=== PATIENT | male | born 1945 | race Caucasian/White ===

== ENCOUNTER 2019-02-03 02:55 | Emergency (ER) | payer MEDICARE, MEDICAID, SELFPAY ==
[2019-02-03] VITALS (20 sets, daily range): BP systolic 132–168; BP diastolic 73–92; PULSE 67–130; RESP 11–23; TEMP 36.5; O2SAT 94–99
[2019-02-03] MEDS: Normal Saline 1,000 ML 1000 ML IV (03:18)
--- NOTE | 2019-02-03 03:18 | ED.GENADUL_ITS ---
Discharge Plan Disposition Patient Disposition: HOME Condition: Stable Discharge Details Chief Complaint: Abd Prob Clinical Impression: Atrial fibrillation with RVR Primary Care Provider: Lydia Nixon ED Provider: Tee Cleveland Home Meds and New Rx's Prescriptions: New diltiazem HCl 120 mg capsule,extended release 24hr 120 mg PO DAILY Qty: 10 RF: 0 Continued Shingrix (PF) 50 mcg/0.5 mL suspension for reconstitution 50 mcg IM .COMPLEX Qty: 1 RF: 1 aspirin [Aspir-81] 81 MG tablet,delayed release (DR/EC) 81 mg PO DAILY RF: 0 Discharge Instructions Instructions: Atrial Fibrillation (ED) Additional Instructions: start taking the diltiazem every morning tomorrow. When you follow up with your primary care provider this week discuss continuing this medication if you have worsening symptoms or new symptoms such as severe chest pain or difficulty breathing return to the emergency department Medical Decision Making 73 yo male with hx of afib on asa only, aaa, who comes in with chief complaint of nausea primarily when he wakes up around 2am for the past few days. Denies vomit, states he someimtes feels dizzy but isn't able to tell me when this happens and denies dizziness now. He has no chest pain now but states he did have some burning in the chest yesterday and epigastric area and back pain. He denies fevers. He has a soft nondistended abodmen with some mild epigastric tenderness. He is noted to be in afib with rates ranging from 110-140, will give IV dilt to try and control his heart rate, and given nausea, chest burning and some abdomen and back discomfort will image to eval for entities such as dissection, ruptured aaa, sbo. pt given IV dilt and now hr in 70's and 80's still in afib, will give a dose of oral diltiazem. [id number] score is 1 so asa vs anticoagulation indicated, will have him discuss this further with pcp as outpatient, awaiting labs and imaging imaging shows no acute findings, HR less than 100. I recommended repeating troponin but pt declined this as he doesn't want to stay any longer. He understands the risks of missing an MS including and disability and still doesn't want to stay, has capacity to make his own decisions at this time, caox4. STrongly recommended f/u with pcp and will prescribe diltiazem until he f/u with pcp, advised he can return if he can change his mind Differential Diagnosis afib with rvr, electrolyte abnormality, aaa, dissection Medical Records Medical records reviewed: Yes I reviewed the patient's medical records. Imaging Data Radiologic Study: Attestation: I personally reviewed and interpreted this imaging study as follows: Imaging: CT Scan Radiologist's impression: negative cta chest/abd/pelvis per vrad Lab Data Lab results reviewed: Yes I reviewed the patient's lab results. ECG Data Attestation: I personally reviewed and interpreted this ECG (s) as follows: Prior ECG tracings: not available for review Interpretation: atrial fibrillation, rate of 80, qtc 422, no acute st t wave ischemic findings HPI General Mode of arrival: ambulatory . Date/Time Provider Initiated Documentation: 02/03/19 02:56 . Limitations to Documentation: no limitations . Information obtained by: patient . History of Present Illness 73 year old M presents to the emergency department with the chief complaint of nausea, described as moderate, and is localized to the abdomen. Patient reports no radiation. Patient started experiencing this day(s) (3) and it has been constant. No relieving factors improve symptom(s), No exacerbating factors reported . Patient did receive the following treatments prior to arrival, none Related Data Home Medications Medication Instructions Recorded Confirmed aspirin [Aspir-81] 81 mg PO DAILY tab 01/10/13 02/03/19 varicella-zoster glycoE vacc-AS01B 50 mcg IM .COMPLEX #1 each 07/15/18 02/03/19 adj(PF) 50 mcg/0.5 mL IM susp, kit diltiazem HCl 120 mg PO DAILY #10 cap 02/03/19 Previous Rx's Medication Instructions Recorded varicella-zoster glycoE vacc-AS01B 50 mcg IM .COMPLEX #1 each 07/15/18 adj(PF) 50 mcg/0.5 mL IM susp, kit diltiazem HCl 120 mg PO DAILY #10 cap 02/03/19 Allergies Allergy/AdvReac Type Severity Reaction Status Date / Time No Known Allergies Allergy Unverified 02/03/19 03:39 General Stated Complaint: Abd Prob VEDA: 3 Review of Systems Review of Systems All systems reviewed & are unremarkable except as noted in HPI and below Constitutional Denies chills and Denies fever(s) Cardiovascular Denies dyspnea Respiratory Denies dyspnea Gastrointestinal Denies vomiting Integumentary/Breasts Denies rash [facility] Medical History Unspecified 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/09/12) Nocturia (Chronic 08/03/15) 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 Pets and animals: No What type of physical activity do you participate in: walking Frequency: 3-4 times per week Do you feel safe in your relationship?: Yes Exam Const General: no acute distress Orientation: alert HENMT Head: normal to inspection Ears: external ears normal General nose exam: external nose normal Mouth: moist mucous membranes Eyes General: appearance normal, both eyes and all related structures Neck Neck: normal visual inspection Resp Effort & Inspection: normal respiratory effort and able to speak in complete sentences Cardio Jugular venous pressure: no JVD Rate: tachycardic Rhythm: abnormal rhythm GI Inspection: normal to inspection and no abdominal wall ecchymosis Skin General skin exam: no rashes or lesions noted Neuro General: alert and oriented x3 Extrem General: normal to inspection Psych Mental Status: mental status grossly normal Course Vital Signs Temperature 36.5 C 02/03/19 03:02 Pulse 114 H 02/03/19 03:02 Respiratory Rate 15 02/03/19 03:02 Blood Pressure 151/89 H 02/03/19 03:02 Pulse Oximetry 97 02/03/19 03:02 Temperature 36.5 C 02/03/19 03:02 Temperature Source Temporal Artery Scan 02/03/19 03:02 Pulse 114 H 02/03/19 03:02 Respiratory Rate 15 02/03/19 03:02 Respiratory Effort 02/03/19 03:02 Blood Pressure 151/89 H 02/03/19 03:02 Pulse Oximetry 97 02/03/19 03:02 Oxygen Delivery Method Room Air 02/03/19 03:02 Oxygen Flow Rate 0 02/03/19 03:02 Pain Level 0 02/03/19 03:02 Critical Care Time Critical Care Time: Yes Total Critical Care Time: 45 (minutes) Attestation: time spent reviewing ecg's, labs and initiating IV ivan blockers in patient with atrial fibrillation with rvr and potential to deteriorate at any time
[2019-02-03] MEDS: dilTIAZem 25 MG/5 ML VIAL 15 MG IVP (03:19)
[2019-02-03] MEDS: Normal Saline Flush 10 ML SYR IVP (03:21)
[2019-02-03 03:35] LABS: Abs Immature Grans 0.02 k/cumm (0.0-0.09); Absolute Basophil Count 0.03 k/cumm (0.0-0.2); Absolute Eosinophil Count 0.13 k/cumm (0.0-0.7); Absolute Lymphocyte Count 1.57 k/cumm (1.2-3.4); Absolute Monocyte Count 0.33 k/cumm (0.11-0.7); Basophils % 0.6; Eosinophils % 2.6; HCT 45.9 % (40.0-50.0); HGB 15.6 g/dL (13.5-17.5); Immature Grans % 0.4; Lymphocytes % 31.5; Mean Corpuscular Hemoglobin 32.6 pg (27.0-33.0); Mean Corpuscular Volume 95.8 fL (80-95); Mean Platelet Volume 11.6 fL (8.0-11.0); Monocytes % 6.6; Neutrophils % 58.3; Platelet Count 147 x1000/uL (130-400); RBC 4.79 m/cumm (4.50-6.00); RBC Distribution Width 13.9 % (11.8-14.1); White Blood Cell Count 4.98 k/cumm (4.4-10.8)
[2019-02-03] MEDS: dilTIAZem CD 180 MG CAPCR PO (03:36)
[2019-02-03 04:03] LABS: ALT 43 U/L (12-78); AST 27 U/L (15-37); Albumin 3.7 g/dL (3.4-5.0); Alkaline Phosphatase 91 U/L (46-116); Anion Gap 10.9 mmol/L (3-11); BUN 25 mg/dL (7-18); Bilirubin, Total 0.5 mg/dL (0.2-1.0); CO2 24.1 mmol/L (21.0-32.0); Calcium 8.5 mg/dL (8.5-10.1); Chloride 108 mmol/L (98-107); Glucose 116 mg/dL (70-100); Lipase 177 U/L (73-393); Sodium 143 mmol/L (136-145); Total Protein 7.5 g/dL (6.4-8.2); Troponin I 0.02 ng/mL (0.00-0.06)
[2019-02-03 04:15] LABS: PTT Activated 23.1 sec (21.0-31.4); Prothrombin Time 10.4 sec (9.3-11.0)
--- NOTE | 2019-02-03 04:20 | DI.CT_ITS ---
SYMPTOM/DIAGNOSIS: NAUSEA, CHEST AND ABD PAIN CTA CHEST, ABDOMEN AND PELVIS: CT angiography was performed with multi slice acquisition and multi planar and 3D reconstruction. CT angiography of the chest, abdomen and pelvis was performed with a bolus infusion of 100 cc's of Omnipaque 350. Thoracic aorta and major branches appear normal with no evidence of aneurysm or dissection. No evidence of pulmonary embolic disease. Abdominal aorta is of normal diameter. No abnormality is seen involving aorta, celiac trunk, SMA, DOMINIC or renal arteries. Common internal and external iliac arteries are unremarkable. Lungs are clear. No mediastinal or hilar adenopathy. Mild cardiomegaly noted. No pleural effusion. Tracheobronchial tree appears intact. No mediastinal or hilar adenopathy. Liver, spleen and pancreas appear normal. Adrenals and kidneys are unremarkable in appearance. Gallbladder and bile ducts are CT normal. No abdominal adenopathy is seen. Small bilateral fat containing inguinal hernias noted. Appendix is normal. No evidence of diverticulitis or bowel obstruction. CONCLUSION: Negative CTA chest, abdomen and pelvis.
[2019-02-03] MEDS: Omnipaque 350 MG/ML 100 ML BTL IJ (04:24)
[2019-02-03] MEDS: Omnipaque 350 MG/ML 50 ML BTL IJ (04:25)
--- NOTE | 2019-02-03 04:57 | DI.VRAD_ITS ---
EXAM: CT Angiography Chest With Contrast EXAM DATE/TIME: 02/03/2019 4:24 AM CLINICAL HISTORY: 73 years old, male; Pain and signs and symptoms; Other: Nausea, abdomen pain, chest pain; Type not specified; Other: Nausea, chest, abdomen pain; Abdominal pain; Generalized; Prior surgery; Surgery date: 6+ months; Surgery type: Hernia repair TECHNIQUE: Imaging protocol: Axial computed tomographic angiography images of the chest with intravenous contrast using CT angiography protocol. 3D rendering: MIP reconstructed images were created and reviewed. Radiation optimization: All CT scans at this facility use at least one of these dose optimization techniques: automated exposure control; mA and/or kV adjustment per patient size (includes targeted exams where dose is matched to clinical indication); or iterative reconstruction. Contrast material: [id number]; Contrast volume: 125 ml; Contrast route: IV; COMPARISON: CR CHEST 2 VIEWS PA,LAT 01/29/2017 1:18 PM FINDINGS: Pulmonary arteries: Unremarkable. No obvious pulmonary emboli. Aorta: Unremarkable. No aortic aneurysm. No aortic dissection. Lungs: Unremarkable. No consolidation. No masses. No suspicious nodules. Pleural space: Unremarkable. No pneumothorax. No pleural effusion. Heart: Unremarkable. No pericardial effusion. No obvious heart strain. Lymph nodes: Unremarkable. No enlarged lymph nodes. Bones/joints: Unremarkable. No acute fracture. Soft tissues: Unremarkable. IMPRESSION: No acute findings. EXAM: CT Angiography Abdomen and Pelvis With Contrast EXAM DATE/TIME: 02/03/2019 4:24 AM CLINICAL HISTORY: 73 years old, male; Pain and signs and symptoms; Other: Nausea, abdomen pain, chest pain; Type not specified; Other: Nausea, chest, abdomen pain; Abdominal pain; Generalized; Prior surgery; Surgery date: 6+ months; Surgery type: Hernia repair TECHNIQUE: Imaging protocol: Axial computed tomographic angiography images of the abdomen and pelvis with intravenous contrast material. 3D rendering: MIP reconstructed images were created and reviewed. Radiation optimization: All CT scans at this facility use at least one of these dose optimization techniques: automated exposure control; mA and/or kV adjustment per patient size (includes targeted exams where dose is matched to clinical indication); or iterative reconstruction. COMPARISON: CR CHEST 2 VIEWS PA,LAT 01/29/2017 1:18 PM FINDINGS: VASCULATURE: Aorta: No aortic aneurysm. No aortic dissection. Celiac trunk and mesenteric arteries: No occlusion or significant stenosis. Renal arteries: No occlusion or significant stenosis. Right iliac arteries: No occlusion or significant stenosis. Left iliac arteries: No occlusion or significant stenosis. ABDOMEN: Liver: No mass. Gallbladder and bile ducts: Unremarkable. No calcified stones. No ductal dilation. Pancreas: Unremarkable. No mass. No ductal dilation. Spleen: Unremarkable. No splenomegaly. Adrenals: Unremarkable. No mass. Kidneys and ureters: Unremarkable. No solid mass. No hydronephrosis. Stomach and bowel: Unremarkable. No obstruction. No mucosal thickening. Appendix: No evidence of appendicitis. PELVIS: Bladder: Unremarkable. No mass. Reproductive: Unremarkable as visualized. ABDOMEN and PELVIS: Intraperitoneal space: Unremarkable. No free air. No significant fluid collection. Bones/joints: No acute fracture. No dislocation. Soft tissues: Unremarkable. Lymph nodes: Unremarkable. No enlarged lymph nodes. IMPRESSION: Unremarkable CTA abdomen pelvis. Dictated and Authenticated by: Billy Hogue MD. Ordering:CINDI Oliveira MD
--- NOTE | 2019-02-03 09:04 | CMPROGNOTE_ITS ---
Care Management Progress Note 02/03-Dr. Cleveladn requested assistance with a PCP (Hussain) f/u this week for afib w/rapid rates. Referral faxed to [facility] this am.
== END 2019-02-03 05:21 | disposition home or self-care (01) ==
LOC: ER 05:24
PROVIDERS: Emergency Provider Emergency Medicine; PCP Nurse Practitioner Family
DX: I48.0 Paroxysmal atrial fibrillation (principal); I71.4 Abdominal aortic aneurysm, without rupture
CPT/HCPCS: 36415; 74177; 80053; 83690; 93005; 96361; 96374; 99285; 83735; 84484; 85025; 85610; 85730; 93010; J3490; Q9967

== ENCOUNTER 2019-02-04 23:40 | Emergency (ER) | payer MEDICARE, MEDICAID, SELFPAY ==
--- NOTE | 2019-02-04 23:45 | W.ED.GENAD ---
Discharge Plan Disposition Patient Disposition: HOME Condition: Stable Discharge Details Chief Complaint: Nausea/Vomit/Diar Clinical Impression: Nausea Primary Care Provider: Lydia Nixon ED Provider: Tee Cleveland Home Meds and New Rx's Prescriptions: New ondansetron 4 mg tablet,disintegrating 4 mg PO TID-QID PRN (Reason: nausea and vomiting) Qty: 30 RF: 0 Continued diltiazem HCl 120 mg capsule,extended release 24hr 120 mg PO DAILY Qty: 30 RF: 1 Shingrix (PF) 50 mcg/0.5 mL suspension for reconstitution 50 mcg IM .COMPLEX Qty: 1 RF: 1 aspirin [Aspir-81] 81 MG tablet,delayed release (DR/EC) 81 mg PO DAILY RF: 0 Discharge Instructions Additional Instructions: Your vital signs and exam today were normal take the ondansetron as prescribed as needed for nausea follow up with your primary care provider in 1-2 weeks especially if symptoms continue if you have persistent vomit, difficulty breathing or chest pain/pressure return to the emergency department Medical Decision Making 73 yo male with hx of afib comes in with nausea. I saw him in the past 2 days for complaints of intermittent nausea, and he was found to be in afib with rvr on arrival but improved with iv dilt x1 and oral dilt. His lab work and imaging of the chest/abd/pelvis was unremarkable at that time and he felt well and was d/c'd. He comes in tonight because he got up to go to the [facility], [place], operated by [facility] and had nausea. He has been having nausea when waking up for months now. He denies any symptoms on my exam and is speaking in full sentences in no distress, denies chest pain or abd pain. He has no abdominal tenderness on exam. His HR is in the 90-110 range in afib. Given his lack of symptoms and stable vitals now do not feel further testing indicated. Will prescribe prn antiemetics and advised f/u with pcp if this continues, return precautions given Differential Diagnosis afib, nausea, food illness Medical Records Medical records reviewed: Yes I reviewed the patient's medical records. ECG Data Attestation: I personally reviewed and interpreted this ECG (s) as follows: Prior ECG tracings: available for review Interpretation: atrial fibrillation, rate of 103, qtc 445, no acute st t wave ischemic changes compared to old ekg HPI General Mode of arrival: ambulatory. Date/Time Provider Initiated Documentation: 02/04/19 23:42. Limitations to Documentation: no limitations. Information obtained by: patient. History of Present Illness 73 year old M presents to the emergency department with the chief complaint of nausea, described as moderate, Patient started experiencing this hour(s) (2) and it has been intermittent and now resolved. No exacerbating factors reported . Patient notes no other symptoms.. Patient did receive the following treatments prior to arrival, none Related Data Home Medications Medication Instructions Recorded Confirmed aspirin [Aspir-81] 81 mg PO DAILY tab 01/10/13 02/04/19 varicella-zoster glycoE vacc-AS01B 50 mcg IM .COMPLEX #1 each 07/15/18 02/04/19 adj(PF) 50 mcg/0.5 mL IM susp, kit diltiazem CD 120 mg 120 mg PO DAILY #30 cap 02/04/19 02/04/19 capsule,extended release 24 hr ondansetron 4 mg PO TID-QID PRN #30 tab 02/04/19 Previous Rx's Medication Instructions Recorded varicella-zoster glycoE vacc-AS01B 50 mcg IM .COMPLEX #1 each 07/15/18 adj(PF) 50 mcg/0.5 mL IM susp, kit diltiazem CD 120 mg 120 mg PO DAILY #30 cap 02/04/19 capsule,extended release 24 hr ondansetron 4 mg PO TID-QID PRN #30 tab 02/04/19 Allergies Allergy/AdvReac Type Severity Reaction Status Date / Time No Known Allergies Allergy Unverified 02/04/19 23:54 General VEDA: 3 Review of Systems Review of Systems All systems reviewed & are unremarkable except as noted in HPI and below Constitutional Denies chills and Denies fever(s) Cardiovascular Denies chest pain and Denies dyspnea Respiratory Denies cough and Denies dyspnea Gastrointestinal Denies abdominal pain and Denies nausea Integumentary/Breasts Denies rash [facility] Social History Smoking/Tobacco Use Status: Former Tobacco Use Alcohol Intake: never Substance use type: does not use 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 Pets and animals: No What type of physical activity do you participate in: walking Frequency: 3-4 times per week Do you feel safe in your relationship?: Yes Exam Const General: no acute distress Orientation: alert HENMT Head: normal to inspection Ears: external ears normal General nose exam: external nose normal Mouth: moist mucous membranes Eyes General: appearance normal, both eyes and all related structures Neck Neck: normal visual inspection Resp Effort & Inspection: normal respiratory effort and able to speak in complete sentences Cardio Rate: regular rate GI Inspection: normal to inspection and no abdominal wall ecchymosis Skin General skin exam: no rashes or lesions noted Neuro General: alert and oriented x3 Extrem General: normal to inspection Psych Mental Status: mental status grossly normal
[2019-02-04 23:46] VITALS: BP 158/102; PULSE 107; RESP 18; TEMP 37; O2SAT 97
[2019-02-04 23:53] VITALS: BP 162/90; PULSE 110; RESP 19; O2SAT 99
[2019-02-04] MEDS: Ondansetron O.D.T. 4 MG TABEF PO (23:53)
[2019-02-05 00:05] VITALS: BP 153/98; PULSE 97; RESP 18; TEMP 36.5; O2SAT 100
== END 2019-02-05 00:05 | disposition home or self-care (01) ==
PROVIDERS: Emergency Provider Emergency Medicine; PCP Nurse Practitioner Family
DX: R11.0 Nausea (principal); I48.91 Unspecified atrial fibrillation
CPT/HCPCS: 93005; 99283; 93010

== ENCOUNTER 2019-02-12 00:34 | Outpatient (CLI) | payer MEDICARE, MEDICAID, SELFPAY ==
--- NOTE | 2019-02-12 07:30 | DI.US_ITS ---
SYMPTOM/DIAGNOSIS: F/U AAA, I71.4 AORTA ULTRASOUND: Limited ultrasound was performed to evaluate for abdominal aortic aneurysm. No aneurysm identified. Maximal aortic diameter about 2.5 cm. Common iliac arteries are of normal diameter with maximal diameter about 14 mm. bilaterally. CONCLUSION: No abdominal aortic aneurysm seen.
== END 2019-02-12 00:54 ==
PROVIDERS: PCP Nurse Practitioner Family; Visit Provider Nurse Practitioner Adult Health
DX: I71.4 Abdominal aortic aneurysm, without rupture (principal)
CPT/HCPCS: 76775

== ENCOUNTER 2019-03-12 01:59 | Outpatient (CLI) | payer MEDICARE, MEDICAID, SELFPAY ==
--- NOTE | 2019-03-17 12:32 | HOLTER_ITS ---
HOLTER MONITOR REPORT DATE OF DICTATION March 17, 2019 A 36-Hour Study. Atrial fibrillation throughout study. Nocturnal heart rates approximately 80 beats per minute, daytime heart rate approximately 140 beats p er minute. No bradycardia. SYMPTOMS No symptoms. Average heart rate 119 beats per minute, range 79 - 192 beats per minute. Tee Joyce M.D. CECIL/brayan T - 03/17/19
== END 2019-03-12 02:19 ==
PROVIDERS: PCP Nurse Practitioner Family; Visit Provider Nurse Practitioner Family
DX: I48.91 Unspecified atrial fibrillation (principal)
CPT/HCPCS: 93225

== ENCOUNTER 2019-03-15 15:13 | Outpatient (CLI) | payer MEDICARE, MEDICAID, SELFPAY | END 2019-03-15 15:33 | PROVIDERS: PCP Nurse Practitioner Family; Visit Provider Nurse Practitioner Family | DX: I48.91 Unspecified atrial fibrillation (principal) | CPT/HCPCS: 93226 ==

== ENCOUNTER 2019-03-17 09:53 | Outpatient (CLI) | payer MEDICARE, MEDICAID, SELFPAY | END 2019-03-17 10:13 | PROVIDERS: PCP Nurse Practitioner Family; Referring Provider Nurse Practitioner Family; Visit Provider Internal Medicine Interventional Cardiology | DX: I48.91 Unspecified atrial fibrillation (principal) | CPT/HCPCS: 93227 ==

== ENCOUNTER 2019-05-25 05:04 | Observation (INO) | payer MEDICARE, MEDICAID, SELFPAY ==
[2019-05-25] VITALS (41 sets, daily range): BP systolic 115–151; BP diastolic 65–91; PULSE 59–160; RESP 10–32; TEMP 35.6–36.9; O2SAT 94–100
--- NOTE | 2019-05-25 05:08 | W.ED.GENAD ---
Discharge Plan Disposition Patient Disposition: [facility] INPATIENT Condition: Fair Discharge Details Chief Complaint: Dizzy/Sync Clinical Impression: Dizziness, Atrial fibrillation Admit Date/Time: 05/25/19 09:33 Admit Provider: Kerry Lira Attending Provider: Kerry Lira Primary Care Provider: Lydia Nixon ED Provider: Lm Castillo [facility] Hospital Course: Mr Jones is a 74 year old male with PMHx of paroxysmal Afib, not on anticoagulation and noncompliant with cardizem, on asa, as well as h/o intellectual disability (he makes his own medical decisions), OA, observed on [facility] hospitalist service 05/25/19 through 05/26/19 for symptoms of vertigo (dizziness and nausea, but no vomiting). The patient was in Afib in the ED, but his rates were mostly controlled. However, the patient still felt dizzy and unsteady, so we were asked to observe him. Once the patient arrived to the floor, we did note that his heart rate would become elevated up to 170's with activity and 110's at rest. His home cardizem was resumed, and his heart rate slowed down into 80's. He is now asymptomatic of dizziness and nausea. While there was a suspicion that the patient cannot move his eyes past midline on the left, he in fact can - he just had difficulty following instructions. However, on telemetry, we noted several runs of non-sustained Vtach. The longest of these recorded runs was 11 beats. Echo was obtained - it revealed EF of 50-55%, no obvious cardiomyopathy, and moderate pulmonary hypertension. The patient is felt to benefit from a nuclear stress test, but insists on being discharged home today and having the stress test done as outpatient. I discussed the case with cardiology - it is felt best to have the patient follow up for a zio patch (PCP office to set this up), initiate beta blockers (toprol xl 12.5 mg started the morning of discharge), and have home health nursing check patient's understanding of his medications, his heart rate and blood pressure as outpatient. The patient was advised that if he feels dizzy again, he should come back to the hospital. Her verbalizes understanding of these instructions. He verbalizes that he will follow up with his PCP and for his stress test. Please, note, that the clinical team and myself feel that the patient's understanding of his medical conditions is borderline, at best. If the patient does not demonstrate medication safety at home to home health nursing, a formal capacity evaluation should be considered. Physical therapy does recommend a cane, but the patient is not interested. They feel home health physical therapy is indicated. Discharge Instructions Instructions: Metoprolol (By mouth), Diltiazem (By mouth), Cardiac Stress Test (DC) Additional Instructions: Return to the hospital if you're feeling dizzy, have any chest pain, shortness of breath. Follow up with your PCP. Follow up for your stress test. Make sure you fill your medications and take them as prescribed. Care Plan Goals: Home with home health Forms: Nursing Discharge Form Referrals: Lydia Nixon NP [Primary Care Provider] - 06/06/19 1:00 pm Tee Joyce MD [ NON-[facility] STAFF PHYSICIAN] - 06/04/19 1:30 pm Discharge Data Discharge Date/Time-TO BE ENTERED AT DEPARTURE: 05/25/19 10:06 Medical Decision Making <Lm Castillo MD - Last Filed: 05/27/19 20:22> Patient presenting with chief complaint of nausea. He describes some short-lived intermittent vertigo-like symptoms. He is neurologically intact. He is not describing chest pain or pressure. He has no shortness of breath. He has no abdominal pain. His A. fib is not new. He does take his aspirin but not as diltiazem. I do not think this is related to cardiac ischemia, CVA/TIA, uncontrolled A. fib. He does not have an acute abdomen. For the time being I am going to hold off in any type of laboratory or radiologic work-up. We will give a dose of meclizine and reevaluate. 06:40 -patient states that he feels less dizzy. However, he still nauseated. We tried ambulating and he got very nauseated. He is able to ambulate but he states he feels like he is wobbly and going to fall over. He does not have any focal findings but because of his history of A. fib and his persistent complaints as well as his difficulty giving history, I'm going to err on the side of possible posterior circulation abnormality. As such we will place an IV and check basic labs. We will get CTA of the head as well as CTA of the head and neck. 7:30 - labs are unremarkable. Patient in CT but feeling very nauseated. Will give some IV Zofran. Patient will be signed out to Dr. Culp to follow up on imaging studies. Consider admission for MRI brain and ECHO tomorrow. Medical Records Medical records reviewed: Yes I reviewed the patient's medical records. ECG Data Attestation: I personally reviewed and interpreted this ECG (s) as follows: Prior ECG tracings: not available for review Interpretation: Atrial fibrillation at a rate of 93. Low voltage in limb leads and poor R wave progression. No acute ST changes. 1 PVC. <Kushal Culp MD - Last Filed: 06/01/19 11:22> 8:30 -- Care signed out by Dr. Castillo with plan to follow-up on CT and reassess patient. Labs reviewed and nondiagnostic. ECG reviewed and demonstrates atrial fibrillation with a ventricular rate of 93 bpm. CTA of the head interpreted by radiology: No acute findings. CTA of the neck interpreted by radiology: No acute findings. Less than 50% stenosis. Patient was reassessed and continues to have symptoms of nausea and unsteadiness on his feet. Patient is a poor historian and unable to perform hints exam. Patient is unable to gaze to the left and notes this is a chronic issue. No nystagmus appreciated. 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 Rapid alternating movements are intact. Patient does have some difficulty with [id number] but no pass pointing. Motor and sensation intact. I called and spoke with Dr. Lira who will admit the patient. HPI <Lm Castillo MD - Last Filed: 05/27/19 20:22> General Mode of arrival: ambulatory. Date/Time Provider Initiated Documentation: 05/25/19 05:04. Limitations to Documentation: no limitations. Information obtained by: patient, RN notes reviewed and old records reviewed. HPI Narrative: Patient presents to ED with complaint of queasiness. When asked to explain this he describes nausea as well as some intermittent short-lived movement sensations but not true vertigo. He denies having headache, vision changes, chest pain or pressure, shortness of breath, weakness. He does have a history of atrial fibrillation and takes aspirin. He has not been taking his diltiazem. He took medication for the nausea which did not seem to help. He drove here because of continued symptoms of nausea. Related Data Home Medications Medication Instructions Recorded Confirmed aspirin [Aspir-81] 81 mg PO DAILY tab 01/10/13 05/30/19 diltiazem HCl 120 mg 120 mg PO DAILY #30 cap 02/04/19 05/30/19 capsule,extended release 24 hr ondansetron 4 mg PO Q6H PRN 05/25/19 05/30/19 metoprolol succinate 12.5 mg PO DAILY #30 cap 05/26/19 05/30/19 multivitamin [Multiple Vitamins] 1 tab PO DAILY #30 tab 05/26/19 05/30/19 Previous Rx's Medication Instructions Recorded diltiazem HCl 120 mg 120 mg PO DAILY #30 cap 02/04/19 capsule,extended release 24 hr metoprolol succinate 12.5 mg PO DAILY #30 cap 05/26/19 multivitamin [Multiple Vitamins] 1 tab PO DAILY #30 tab 05/26/19 Allergies Allergy/AdvReac Type Severity Reaction Status Date / Time No Known Allergies Allergy Unverified 05/30/19 03:27 General VEDA: 3 Review of Systems <Lm Castillo MD - Last Filed: 05/27/19 20:22> Review of Systems As documented in HPI otherwise negative as below. Const: no fever, chills, weakness Resp: no cough, SOB, pleuritic pain CV: no CP, diaphoresis, edema, syncope GI: no abdominal pain, nausea, vomiting, diarrhea Neuro: no headache, numbness, focal weakness, confusion PFSH <Lm Castillo MD - Last Filed: 05/27/19 20:22> Medical History Abdominal aortic aneurysm (AAA) without rupture (Resolved 02/27/17) Atrial fibrillation (Chronic 01/28/13) Unspecified 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/09/12) Surgical History Repair of inguinal hernia Social History Smoking/Tobacco Use Status: Former Tobacco Use Alcohol Intake: never Substance use type: does not use Caregiver/Support person: No Communication Needs: None 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 Occasional tachycardia. Otherwise normal vitals and pulse oximetry. Const: WDWN elderly male in NAD. HEENT: NC/AT. Normal facial exam. Eyes: PERRL and EOMI. No nystagmus. Neck: Supple. Trachea midline. Lungs: Normal respiratory effort. Lungs are clear. Cor: Irr/Irr without murmur/gallop. Good radial pulses. GI: Soft. NT/ND. No guarding or rebound. Neuro: A+O x 3. CN II - XII in tact. Normal gait, speech, mental status, strength and sensation. Ext: No C/C/E. No deformity or tenderness. Skin: Warm and dry without rash.
[2019-05-25] MEDS: Meclizine 25 MG TAB PO (05:31)
[2019-05-25 06:54] LABS: HCT 45.8 % (40.0-50.0); HGB 15.4 g/dL (13.5-17.5); Mean Corp. HGB Concentration 33.6 g/dL (32.0-36.0); Mean Corpuscular Hemoglobin 32.9 pg (27.0-33.0); Mean Corpuscular Volume 97.9 fL (80-95); Mean Platelet Volume 10.6 fL (8.0-11.0); Platelet Count 159 x1000/uL (130-400); RBC 4.68 m/cumm (4.50-6.00); RBC Distribution Width 14.1 % (11.8-14.1); White Blood Cell Count 7.88 k/cumm (4.4-10.8)
[2019-05-25 07:11] LABS: ALT 32 U/L (16-63); AST 22 U/L (15-37); Albumin 3.9 g/dL (3.4-5.0); Alkaline Phosphatase 83 U/L (46-116); Anion Gap 10.2 mmol/L (3-11); BUN 23 mg/dL (7-18); Bilirubin, Total 0.6 mg/dL (0.2-1.0); CO2 25.8 mmol/L (21.0-32.0); CREATININE 1.01 mg/dL (0.70-1.30); Chloride 107 mmol/L (98-107); Glucose 113 mg/dL (70-100); Potassium 4.7 mmol/L (3.5-5.1); Sodium 143 mmol/L (136-145); Total Protein 7.9 g/dL (6.4-8.2)
[2019-05-25 07:14] LABS: Troponin I < 0.05 ng/mL (0.00-0.06)
[2019-05-25] MEDS: Ondansetron 4 MG/2 ML VIAL IVP (07:30)
[2019-05-25] MEDS: Omnipaque 350 MG/ML 100 ML BTL IJ (07:58)
[2019-05-25] MEDS: Normal Saline Flush 10 ML SYR IVP (07:59)
--- NOTE | 2019-05-25 07:59 | DI.CT_ITS ---
SYMPTOM/DIAGNOSIS: VERTIGO, UNSTEADY GAIT CT BRAIN AND NECK CTA: CT angiography was performed with multi slice acquisition and multi planar and 3D reconstruction. There is calcific plaque of both common carotid bulbs but no significant stenosis. Calcifications are also seen in the distal vertebral arteries. The carotid and vertebral arteries are normal in diameter throughout. The [place] vasculature appears intact. There is no gross evidence of an aneurysm. IMPRESSION: Mild carotid and distal vertebral artery calcification. No evidence of vascular occlusion, significant stenosis or aneurysm.
--- NOTE | 2019-05-25 09:11 | DI.VRAD_ITS ---
EXAM: CT Head Without Contrast EXAM DATE/TIME: 05/25/2019 6:45 AM CLINICAL HISTORY: 74 years old, male; Other: Pre cta imagings TECHNIQUE: Imaging protocol: Computed tomography images of the head without contrast. Radiation optimization: All CT scans at this facility use at least one of these dose optimization techniques: automated exposure control; mA and/or kV adjustment per patient size (includes targeted exams where dose is matched to clinical indication); or iterative reconstruction. COMPARISON: CT HEAD WITHOUT CONTRAST 01/29/2017 1:11 PM FINDINGS: Brain: Central and cortical brain atrophy evident, appropriate for patient age. There is nonspecific periventricular low attenuation, likely microangiopathic disease. No acute intracranial hemorrhage. Ventricles: Normal. No ventriculomegaly. Bones/joints: Unremarkable. No acute fracture. Sinuses: Visualized sinuses are unremarkable. No fluid levels. Mastoid air cells: Visualized mastoid air cells are well aerated. No mastoid effusion. Soft tissues: Unremarkable. IMPRESSION: No acute intracranial abnormality. Dictated and Authenticated by: Blanka Ferreira MD. Ordering:ROSANNA Amato MD
[2019-05-25 10:35] LABS: FREE T4 0.86 ng/dL (0.76-1.46); NT-proBNP 682 pg/mL; TSH 1.56 uIU/mL (0.36-3.74)
[2019-05-25 12:40] LABS: Troponin I < 0.05 ng/mL (0.00-0.06)
--- NOTE | 2019-05-25 13:28 | PHARADMIT ---
Admission Pharmacy Clinical Review Vertigo Code Status Full Code Current Weight 88.451 kg Renally Cleared and Narrow Therapeutic Index Meds Crcl ~71.00 mL/min current meds okay QTc Value / Action Taken QTc 428 BP Control, Fever BP 151/80 afebrile Electrolytes reviewed within normal limits DVT Prophylaxis enoxaparin Opiate Usage / Scheduled Bowel Regimen Ordered no/prn Plt/SCr for Heparin / Enoxaparin plt 159 SCr 1.01 INR for Warfarin n/a H/H stable, WBC/Bands h/h 15.4/45.8 WBC 7.88 Antibiotic appropriateness none Cultures and Sensitivities n/a Surgical ABX d/c within 24 hr n/a DM control / Insulin Dosing BG 113 none Heart Failure (Check EF%) (JULIO's, B-Block, Diuretics) none IV to PO Switch n/a Home Meds Reviewed yes Home Meds Not Ordered aspirin, diltiazem (per note pt has not taken this in 6-8 weeks as he ran out), ondansetron Comments
[2019-05-25] MEDS: Enoxaparin 40 MG/0.4 ML SYR SC (14:47)
[2019-05-25] MEDS: dilTIAZem 30 MG TAB PO ×2 (14:47→19:27)
--- NOTE | 2019-05-25 15:02 | HPE_ITS ---
Date of service: 05/25/19 Time of Service: 15:03 Assessment and Plan (1) Paroxysmal atrial fibrillation with RVR: Current visit: Yes Status: Acute Possibly responsible for the dizziness. Patient is noncompliant with his medication regimen. Cardizem was restarted. Because the patient appears dry clinically, I added IVF. No evidence of ACS - trops negative x 2. Monitor on tele. Obtain an echo. (2) Vertigo: Current visit: Yes Status: Acute I am not very convinced the patient has this. Will offer PT/OT consults and prn meclizine. Will reattempt Extraocular exam hoping for more participation. Consider MRI and neurology consults if findings can be confirmed. (3) Unspecified intellectual disabilities: Current visit: No Status: Chronic I am concerned, talking to Mr Jones, that he has such poor understanding of his disease process or proper nutrition. I think it might be worthwhile to pursue a capacity evaluation in terms of ability to make his own medical decisions on this admission. (4) Weight loss: Current visit: Yes Status: Acute This may be explained by poor nutrition at home - however, we should consider malignancy as well. Malignancy workup could be done as outpatient. Provide nutrition counseling. (5) DVT prophylaxis: Current visit: Yes Status: Acute Lovenox (6) Discharge planning issues: Current visit: Yes Status: Acute Full code Consider capacity eval History of Present Illness Chief Complaint: I felt wishy washy Narrative: Mr Jones is 74 year old male with h/o Afib, not on anticoagulation and evidently not taking cardizem, as well as intellectual disability, who lives alone, who presented to the ED complaining of dizziness, nausea, and feeling unsteady, starting at 3 am or so. He thinks he ate a bad tomato yesterday. Prior to the onset of symptoms this morning, the patient went for a walk - he normally exercises at about 2 am, per him. He noticed the symptoms while looking at the newspaper this morning circa 3 am. He denies any vomiting, abdominal pain. He had dry heaving, but no actual emesis. He did feel hot temporarily, but denies subjective fevers/chills. Denies diarrhea/constipation. Denies chest pain, shortness of breath, endorses occasional palpitations, but not during this episode. The patient does not give me a clear answer as to whether any specific movement makes his dizziness/nausea worse. At this time, he still feels a little unsteady, but denies nausea and dizziness currently. Interestingly, the patient requests a nutrigrain bar - based on my conversation with him, this seems to be what he eats at home. He is not interested in eating regular food. To the nursing, he has stated that he has lost weight this summer - not clear how much. In the ED, he was found to be in Afib with rates in low 100's. Since arrival to the floor, however, his HR varies between low 100's at rest and 160's with activities. Also, in the ED the patient's extraocular movement exam revealed difficulty moving both eyes past midline to the left - the patient states that is his normal. Review of Systems Review of Systems 12 systems were attempted to be reviewed. Pertinent positives and negatives are as per HPI. Review of systems is limited due to patient's difficulty understanding/answering questions. 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 Pets and animals: No What type of physical activity do you participate in: walking Frequency: daily Seatbelt use: always Do you feel safe at home: Yes Do you feel safe in your relationship?: Yes Meds Home Medications Medication Instructions Recorded Confirmed Type aspirin [Aspir-81] 81 mg PO DAILY tab 01/10/13 05/25/19 History diltiazem HCl 120 mg 120 mg PO DAILY #30 cap 02/04/19 05/25/19 Rx capsule,extended release 24 hr ondansetron 4 mg PO Q6H PRN 05/25/19 05/25/19 History Allergies Allergy/AdvReac Type Severity Reaction Status Date / Time No Known Allergies Allergy Unverified 05/25/19 05:11 Exam Narrative Exam Narrative: General: Elderly male, appears comfortable and in good spirits. A&Ox3, poor history provider, most of the time does not answer the question I am asking him, but another question. Does not appear to have understanding of his medical condition. Does not look malnourished. Neuro: A&Ox3, seems to have difficulty answering questions, no obvious focal deficits on my exam. He is able to move his eyes to the left Psych: appears to have a bright affect SKin: intact HEENT: I am not sure that I appreciate the difficulty with moving the eyes to the left, dry MM, atraumatic, normocephalic, no submandibular or cervical lym phadenopathy, no goiter or JVD Heart: irregularly irregular rhythm, no m/r/g Lungs: CTAB GI: abdomen is soft, nontender, nondistended, + BS Extremities: no e/c/c BLE's Results Imaging Additional studies: CTA head/neck: No acute intracranial abnormality. EKG: HR 93, Afib, no acute ischemia, nonspecific ST-T changes, PVC Labs : 05/25/19 06:48 05/25/19 06:48 Laboratory Results - last 24 hr 05/25/19 05/25/19 05/25/19 06:48 06:48 12:15 WBC 7.88 RBC 4.68 Hgb 15.4 Hct 45.8 MCV 97.9 H MCH 32.9 MCHC 33.6 RDW 14.1 Plt Count 159 MPV 10.6 Sodium 143 Potassium 4.7 Chloride 107 Carbon Dioxide 25.8 Anion Gap 10.2 BUN 23 H Creatinine 1.01 Estimated GFR/1.73 m2 >= 60.00 Glucose 113 H Calcium 9.0 Total Bilirubin 0.6 AST 22 ALT 32 Alkaline Phosphatase 83 Troponin I < 0.05 < 0.05 NT-Pro-B Natriuret Pep 682 H Total Protein 7.9 Albumin 3.9 TSH 1.56 Free T4 0.86 Last Vital Signs Temp 35.6 C L 05/25/19 10:58 Pulse 160 H 05/25/19 13:56 Resp 18 05/25/19 10:58 BP 151/80 H 05/25/19 10:58 Pulse Ox 100 05/25/19 10:58
--- NOTE | 2019-05-25 15:28 | PDOC.CMIN ---
- If Service Date Differs Date of service: 05/25/19 Time of Service: 15:28 Care Management Initial Assess REASON FOR HOSPITALIZATION:: Unsteady PAST MEDICAL HISTORY/PAST SURGICAL HISTORY:: Medical History: Abdominal aortic aneurysm (AAA) without rupture (Resolved 02/27/17). Atrial fibrillation (Chronic 01/28/13). Unspecified 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/09/12). Surgical History: Repair of inguinal hernia PREVIOUS FUNCTIONAL STATUS/SOCIAL/FAMILY SUPPORTS:: Seth lives alone in a duplex in [place], [place]. His brother used to live with him but he in March of 2018 at the age of 78. Seth had a sister who at a young age of leukemia. Both of his parents are ; his father in 1954 form a farming accident and his mother in 1969. 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 He has a garden at home which he enjoys and raises many different vegetables including tomatoes, squash, carrots and liberian chard. Seth enjoys watching TV and reading about agriculture and gardening in his spare time. He has good friends in the area and has relatives in various parts of [place]. CURRENT FUNCTIONAL STATUS:: Seth was sitting up in bed watching television when CM met with him. He was pleasant and cooperative and engaged readily in conversation. He answered questions appropriately, for the most part, but was a little vague in some responses.Seth talked a lot about his day to day life and how much he enjoys what he does. He states he loves gardening and groundskeeping and does all mowing and snow removal by hand, although he does drive and owns an SUV. He keeps funes's hours, going to bed around 6 pm or a little later and gets up at 2 or 3 am. When CM tried to initiate a conversation about his eating habits, Seth was a bit indefinite. He stated that he eats Nutrigrain bars to settle his stomach, then eats a more regular meal. He admits that he doesn't always cook, although he can cook, because he is tired when he gets home. he admits to losing weight recently. He estimates it to be about 10 pounds in the past 3 months. Has patient been provided with information about the portal?: No Did the patient sign up for the portal?: No CODE STATUS:: Full Code INSURANCE COVERAGE / FINANCIAL ISSUES:: Medicare. Medicaid CURRENT HOME/COMMUNITY SERVICES/EQUIPMENT:: States he has been working with the [employer] on Aging, settling his brother's affairs. PRIMARY CARE PHYSICIAN:: Lydia Nixon PATIENT/FAMILY EDUCATION NEEDS:: Discharge plan, limitations, follow up kalyan and [facility]. TRANSPORTATION:: Seth will drive home in his own vehicle which is parked at [facility] PLAN:: Seth will retun home when ready, likely with new services of nursing to assist with medication management. He will follow up with his PCP and discharge plan of care. CM will continue to support Patient and his discharge needs.
[2019-05-25] MEDS: Normal Saline 1,000 ML 125 ML IV ×2 (15:40→23:34)
[2019-05-26] MEDS: Acetaminophen 325 MG TAB PO (02:39)
[2019-05-26] MEDS: dilTIAZem 30 MG TAB PO (02:39)
[2019-05-26 02:43] VITALS: BP 147/88; PULSE 86; RESP 18; TEMP 37; O2SAT 98
[2019-05-26] MEDS: Normal Saline 1,000 ML 125 ML IV (06:48)
[2019-05-26 07:17] VITALS: BP 147/84; PULSE 76; RESP 18; TEMP 36.9; O2SAT 98
[2019-05-26 07:29] VITALS: PULSE 85
--- NOTE | 2019-05-26 07:31 | MERGE_ITS ---
*[facility]* * Cardiology* [address] [place] [address] Date of study: 05/26/2019 Transthoracic Echocardiography M-mode, complete 2D, complete spectral Doppler, and color Doppler *STUDY CONCLUSIONS* Summary: 1. Left ventricle: The cavity size was normal. Systolic function was at the lower limits of normal. The estimated ejection fraction was 50-55%. The study was not technically sufficient to allow evaluation of LV diastolic dysfunction due to atrial fibrillation. 2. Mitral valve: There was mild regurgitation. 3. Left atrium: The atrium was mildly dilated. 4. Right ventricle: The cavity size was normal. Wall thickness was normal. Systolic function was normal. 5. Right atrium: The atrium was severely dilated. 6. Atrial septum: No defect or patent foramen ovale was identified. 7. Tricuspid valve: There was moderate regurgitation. 8. Pulmonary arteries: Pulmonary systolic pressure was >= 40mm Hg. 9. Inferior vena cava: Poorly visualized. *PATIENT PRESENTATION* Height: 182.9cm (72in ) S/D Pressure: 147 / 88 Weight: 88.5kg (194.6lb ) BSA: 2.13m^2 Test start time: 07:30 AM. Test stop time: 08:15 AM. PERFORMING Unknown PERFORMING [facility] CHEMICAL MACHINE TENDER Annabel Ellison CONSULTING Kerry Lira Yelena A REFERRING Kerry Lira *PROCEDURE DATA* Procedure information: This study was interpreted by [facility]. Pertinent images and digital data are archived for permanent storage and are available for subsequent review. No prior study was available for comparison. Study status: Routine. Transthoracic echocardiography. M-mode, complete 2D, complete spectral Doppler, and color Doppler. A Transthoracic Echocardiogram was performed. Scanning was performed from the parasternal, apical, subcostal, and suprasternal notch acoustic windows. Images were obtained using an Ce[employer]orusMCE-5 [employer] SC 2000 cardiac ultrasound machine. Image quality was adequate. Study completion: The patient tolerated the procedure well. History: PMH: Atrial Fibrillation. *CARDIAC ANATOMY* Left ventricle: The cavity size was normal. Systolic function was at the lower limits of normal. The estimated ejection fraction was 50-55%. The study was not technically sufficient to allow evaluation of LV diastolic dysfunction due to atrial fibrillation. Aortic valve: Trileaflet. Doppler: There was no stenosis. There was no regurgitation. VTI ratio of LVOT to aortic valve: 0.77. Valve area (VTI): 2.3cm^2. Indexed valve area (VTI): 1.1cm^2/m^2. Peak velocity ratio of LVOT to aortic valve: 0.8. Valve area (Vmax): 2.4cm^2. Indexed valve area (Vmax): 1.1cm^2/m^2. Mean velocity ratio of LVOT to aortic valve: 0.64. Valve area (Vmean): 1.9cm^2. Indexed valve area (Vmean): 0.9cm^2/m^2. Mean gradient (S): 3.4mm Hg. Peak gradient (S): 5.9mm Hg. Aorta: Aortic root: The aortic root was normal in size. Ascending aorta: The ascending aorta was mildly dilated. Mitral valve: Doppler: There was no evidence for stenosis. There was mild regurgitation. Valve area by pressure half-time: 3.6cm^2. Indexed valve area by pressure half-time: 1.7cm^2/m^2. Peak gradient (D): 3.5mm Hg. Left atrium: The atrium was mildly dilated. Atrial septum: No defect or patent foramen ovale was identified. Right ventricle: The cavity size was normal. Wall thickness was normal. Systolic function was normal. Pulmonic valve: Doppler: There was no evidence for stenosis. There was no significant regurgitation. Peak gradient (S): 3.8mm Hg. Tricuspid valve: Doppler: There was moderate regurgitation. Pulmonary artery: Poorly visualized. Pulmonary systolic pressure was >= 40mm Hg. Right atrium: The atrium was severely dilated. Pericardium: There was no pericardial effusion. Systemic veins: Inferior vena cava: Poorly visualized. Measurements Left ventricle Value Reference LV ID, ED, PLAX 5.3 cm 3.5 - 6.0 LV ID, ES, PLAX 3.7 cm 2.1 - 4.0 LV PW thickness, ED, PLAX 1.1 cm LV end-diastolic volume, 1-p A2C 103 ml LV ejection fraction, 1-p A2C 54 % LV end-diastolic volume, 1-p A4C 106 ml LV ejection fraction, 1-p A4C 48 % Ventricular septum Value Reference IVS thickness, ED, PLAX 1.1 cm LVOT Value Reference LVOT ID, A-P 2.0 cm LVOT area 3 cm^2 LVOT peak velocity, S 0.97 m/sec LVOT mean velocity, S 0.56 m/sec LVOT VTI, S 16.2 cm LVOT peak gradient, S 3.8 mm Hg LVOT mean gradient, S 1.6 mm Hg Stroke volume (SV), LVOT DP 49 ml Stroke index (SV/bsa), LVOT DP 23 ml/m^2 Aortic valve Value Reference Aortic valve peak velocity, S 1.2 m/sec Aortic valve mean velocity, S 0.9 m/sec Aortic valve VTI, S 21.0 cm Aortic mean gradient, S 3.4 mm Hg Aortic peak gradient, S 5.9 mm Hg VTI ratio, LVOT/AV 0.77 Aortic valve area, VTI 2.3 cm^2 Velocity ratio, peak, LVOT/AV 0.8 Aortic valve area, peak velocity 2.4 cm^2 Velocity ratio, mean, LVOT/AV 0.64 Aortic valve area, mean velocity 1.9 cm^2 Aortic valve area/bsa, mean velocity 0.9 cm^2/m^2 Aorta Value Reference Aortic root ID, ED 3.5 cm Ascending aorta ID, A-P, S 3.6 cm Left atrium Value Reference LA ID, A-P, ES 4.6 cm LA ID/bsa, A-P 2.2 cm/m^2 <=2.2 LA volume, ES, 2-p 78 ml LA volume/bsa, ES, 2-p 37 ml/m^2 LA/aortic root ratio 1.3 Mitral valve Value Reference Mitral E-wave peak velocity 0.93 m/sec Mitral deceleration time 209 ms 150 - 230 Mitral pressure half-time 60 ms Mitral peak gradient, D 3.5 mm Hg Mitral valve area, PHT, DP 3.6 cm^2 Tricuspid valve Value Reference Tricuspid regurg peak velocity 3.2 m/sec Tricuspid peak RV-RA gradient 41 mm Hg Right atrium Value Reference RA area, ES, A4C (H) 31.2 cm^2 8.3 - 19.5 Pulmonic valve Value Reference Pulmonic peak gradient, S 3.8 mm Hg Legend: (L) and (H) syd[place] values outside specified reference range. I have personally reviewed the images and have reviewed and edited the reported findings. Electronically signed by Tee Joyce MD 05/26/2019 10:23
[2019-05-26 07:36] LABS: Anion Gap 10.7 mmol/L (3-11); BUN 14 mg/dL (7-18); CO2 25.3 mmol/L (21.0-32.0); CREATININE 0.87 mg/dL (0.70-1.30); Calcium 8.2 mg/dL (8.5-10.1); Chloride 109 mmol/L (98-107); Glucose 101 mg/dL (70-100); Magnesium 1.8 mg/dL (1.8-2.4); Potassium 3.9 mmol/L (3.5-5.1); Sodium 145 mmol/L (136-145); Vitamin B12 524 pg/mL (193-986)
[2019-05-26] MEDS: Aspirin E.C. 81 MG TABEC PO (09:00)
[2019-05-26] MEDS: Multivitamin TAB 1 TAB PO (09:00)
[2019-05-26] MEDS: dilTIAZem CD 120 MG CAPCR PO (09:00)
[2019-05-26] MEDS: Cyanocobalamin 500 MCG TAB PO (09:00)
[2019-05-26 09:47] VITALS: PULSE 81
--- NOTE | 2019-05-26 09:55 | OT.INIE ---
Occupational Therapy Notes Inpatient Occupational Therapy Evaluation Date: 05/26/19 Referring Doctor:Kerry Lira MD OT Orders: Eval and Treat Precautions: Standard PATIENT PROFILE/ADMITTING DIAGNOSIS: Pt is a 74 year old female was admitted to [facility] for diagnosis of Dizziness, Atrial fibrillation. Past Medical History: Medical History Abdominal aortic aneurysm (AAA) without rupture (Resolved 02/27/17) Atrial fibrillation (Chronic 01/28/13) Unspecified 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/09/12) Surgical History Repair of inguinal hernia Social History/Home Situation: Pt reports that he lives alone in a private home. He reports that he is totally (I) with all ADLs/IADLs at baseline. He reports that he has a walk in shower and a regular toilet. He notes that he is (I) with driving, and works for [employer] for the [employer] in [place]. He reports that his job requires a lot of walking as he walks with his mower. He notes that his brain is telling him its time to leave the hospital and that it won't stop until he does. Equipment owned/DME: Grab bars, raised toilet seat, removable shower head SUBJECTIVE: Pt was sitting in chair he was anxious to return home and notes that he would like to leave [facility]. OBJECTIVE: General Observation: Telemetry, IV (R) UE Mental Status: A&Ox3 Pain: no c/o pain ROM: RUE Shoulder flexion to 150*, elbow WNL, hand and digits WNL L UE Shoulder flexion to 150*, elbow WNL, hand and digits WNL STRENGTH: RUE 4/5 throughout globally LUE 4/5 throughout globally FUNCTIONAL MOBILITY/ADLS: Transfers Sit-Stand (I) Stand-sit (I) Bathroom-Chair (S) Chair-Bathroom (S) BATHING Bathing UE Standing at sink (I) washing face, abdomen and (B) UE DRESSING Dressing UE Standing at sink (I) don and doffing hospital gown Dressing LE Sitting in chair (I) with don and doffing (B) socks (I) GROOMING Standing at sink (I) with brushing teeth TOILETING on toilet (I) EATING Sitting in chair (I) BALANCE: Static sitting Normal Dynamic Sitting Normal Static Standing Normal Dynamic Standing Normal SPECIAL TESTS: Daily Activity Limitations Standardized Measure [facility] AM PAC ?6 clicks? Daily Activity Inpatient Short Form: Raw score: 23 Standardized score: 51.12 CMS score: 15.86% INFORMED CONSENT/EDUCATION: Pt instructed in purpose of OT Consult and plan of care. ASSESSMENT: Patient is a 74-year-old male referred to occupational therapy services with diagnosis of Dizziness, Atrial fibrillation. Patient presents with clinical signs and symptoms consistent with dx, as demonstrated by the following impairment level findings/functional limitations: Decreased functional activity tolerance. OT performed consult with pt who is anxious to return to home, he notes that he needs to get back to work and that he feels fine. Pt functionally was able to demonstrate increased (I) in his ADL routines. OT recommends that pt return to home when medically cleared per MD. AMPAC score 23, CMS score 15.86% Patient is assessed as a Low 55221 complexity based on the following: History: See Above Examination: See Above Presentation: Evolving Decision Making: AMPAC score 23, CMS score 15.86% GOALS N/A PLAN OF CARE/TREATMENT PLAN: OT consult only. DISCHARGE RECOMMENDATIONS Home when medically cleared per MD. TREATMENT TIME/MINUTES/CODES 72615, 15 minutes (09:15) [facility]
--- NOTE | 2019-05-26 10:47 | W.PM.DS.N ---
Date of service: 05/26/19 Time of Service: 10:47 DS: Diagnosis Discharge Diagnosis (1) Paroxysmal atrial fibrillation with RVR: Status: Acute Asessment and Plan: Acute on chronic, now rate controlled (2) Vertigo: Status: Resolved (3) Unspecified intellectual disabilities: Status: Chronic (4) Weight loss: Status: Acute (5) Nonsustained ventricular tachycardia: Status: Acute (6) Pulmonary hypertension: Status: Acute Discharge Plan Disposition Patient Disposition: HOME W/HOME HEALTH SERVICE Condition: Fair Discharge Details Chief Complaint: Dizzy/Sync Clinical Impression: Dizziness, Atrial fibrillation Reason For Visit: VERTIGO Admit Date/Time: 05/25/19 09:33 Admit Provider: Kerry Lira Attending Provider: Kerry Lira Primary Care Provider: Lydia Nixon ED Provider: Lm Castillo [facility] Course Hospital Course: Mr Jones is a 74 year old male with PMHx of paroxysmal Afib, not on anticoagulation and noncompliant with cardizem, on asa, as well as h/o intellectual disability (he makes his own medical decisions), OA, observed on [facility] hospitalist service 05/25/19 through 05/26/19 for symptoms of vertigo (dizziness and nausea, but no vomiting). The patient was in Afib in the ED, but his rates were mostly controlled. However, the patient still felt dizzy and unsteady, so we were asked to observe him. Once the patient arrived to the floor, we did note that his heart rate would become elevated up to 170's with activity and 110's at rest. His home cardizem was resumed, and his heart rate slowed down into 80's. He is now asymptomatic of dizziness and nausea. While there was a suspicion that the patient cannot move his eyes past midline on the left, he in fact can - he just had difficulty following instructions. However, on telemetry, we noted several runs of non-sustained Vtach. The longest of these recorded runs was 11 beats. Echo was obtained - it revealed EF of 50-55%, no obvious cardiomyopathy, and moderate pulmonary hypertension. The patient is felt to benefit from a nuclear stress test, but insists on being discharged home today and having the stress test done as outpatient. I discussed the case with cardiology - it is felt best to have the patient follow up for a zio patch (PCP office to set this up), initiate beta blockers (toprol xl 12.5 mg started the morning of discharge), and have home health nursing check patient's understanding of his medications, his heart rate and blood pressure as outpatient. The patient was advised that if he feels dizzy again, he should come back to the hospital. Her verbalizes understanding of these instructions. He verbalizes that he will follow up with his PCP and for his stress test. Please, note, that the clinical team and myself feel that the patient's understanding of his medical conditions is borderline, at best. If the patient does not demonstrate medication safety at home to home health nursing, a formal capacity evaluation should be considered. Physical therapy does recommend a cane, but the patient is not interested. They feel home health physical therapy is indicated. Home Meds and New Rx's Prescriptions: New multivitamin [Multiple Vitamins] Tablet 1 tab PO DAILY Qty: 30 RF: 0 diltiazem HCl 120 mg Capsule,Extended Release 24hr 120 mg PO DAILY Qty: 30 RF: 0 metoprolol succinate 25 mg capsule,sprinkle,ER 24hr 12.5 mg PO DAILY Qty: 30 RF: 0 No Action diltiazem HCl 120 mg capsule,extended release 24hr 120 mg PO DAILY Qty: 30 RF: 1 aspirin [Aspir-81] 81 MG tablet,delayed release (DR/EC) 81 mg PO DAILY RF: 0 ondansetron 4 mg Tablet,Disintegrating 4 mg PO Q6H PRNRF: 0 Discharge Instructions Instructions: Metoprolol (By mouth), Diltiazem (By mouth), Cardiac Stress Test (DC) Additional Instructions: Return to the hospital if you're feeling dizzy, have any chest pain, shortness of breath. Follow up with your PCP. Follow up for your stress test. Make sure you fill your medications and take them as prescribed. Care Plan Goals: Home with home health Referrals: Lydia Nixon NP [Primary Care Provider] - Tee Joyce MD [ NON-[facility] STAFF PHYSICIAN] - Activity:: Activity as Tolerated Equipment/Supplies:: cane if patient accepts Diet:: Normal Diet Discharge Orders Discharge Orders: Discharge Order (Routine); Ordered 05/26/19 Ordered By: Kerry Lira Other Ambulatory Orders: NM MPI rest & stress grp (Routine) Timeframe: 1 Week Facility: [facility] - Location: CARDIAC LAB Ordered By: Kerry Lira Exam Narrative Exam Narrative: General: Elderly male, A&Ox3, appears to be at his baseline and without any focal neurological deficits. HEENT: EOMI, MMM Heart: irregularly irregular rhythm, no m/r/g Lungs: CTAB GI: abdomen is soft, nontender, nondistended, + BS Extremities: no e/c/c BLE's DS: Data Vitals/I&O Vitals and I&O: Vital Signs Temperature 36.9 C 05/26/19 07:17 Temperature Source Tympanic 05/26/19 07:17 Pulse 81 05/26/19 09:47 Pulse Rhythm Irregular 05/25/19 19:35 Pulse 102 H 05/25/19 09:50 Respiratory Rate 18 05/26/19 07:17 Respiratory Effort Non-Labored 05/25/19 19:35 Respiratory Depth Normal 05/25/19 19:35 Respiratory Pattern Normal 05/25/19 19:35 Blood Pressure 147/84 H 05/26/19 07:17 Blood Pressure Mean 97 05/25/19 08:31 Pulse Oximetry 98 05/26/19 07:17 Oxygen Delivery Method Room Air 05/26/19 07:17 Oxygen Flow Rate 0 05/26/19 07:17 Pain Level 2 05/26/19 07:17 Intake & Output 05/25/19 05/25/19 05/26/19 11:59 23:59 11:59 Intake Total 1187.5 / 1187.5 1404.167 / 1404.167 Output Total 450 / 450 200 / 200 Balance 737.5 / 737.5 1204.167 / 1204.167 Weight 88.451 kg 88.451 kg 86.2 kg Intake: IV 987.5 / 987.5 904.167 / 904.167 Oral 200 / 200 500 / 500 Output: Urine 450 / 450 200 / 200 Other: Urine Color Yellow Urine Appearance Clear Clear Comment pt missed hat some when voiding. pt missed hat. Voiding Methods Toilet Toilet Completed studies during hospitalization [Text1]: CTA head/neck: No acute intracranial abnormality. Echo; 1. Left ventricle: The cavity size was normal. Systolic function was at the lower limits of normal. The estimated ejection fraction was 50-55%. The study was not technically sufficient to allow evaluation of LV diastolic dysfunction due to atrial fibrillation. 2. Mitral valve: There was mild regurgitation. 3. Left atrium: The atrium was mildly dilated. 4. Right ventricle: The cavity size was normal. Wall thickness was normal. Systolic function was normal. 5. Right atrium: The atrium was severely dilated. 6. Atrial septum: No defect or patent foramen ovale was identified. 7. Tricuspid valve: There was moderate regurgitation. 8. Pulmonary arteries: Pulmonary systolic pressure was >= 40mm Hg. 9. Inferior vena cava: Poorly visualized. 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
[2019-05-26] MEDS: Enoxaparin 40 MG/0.4 ML SYR SC (11:10)
[2019-05-26] MEDS: Metoprolol CR 25 MG TABCR 12.5 MG PO (11:12)
[2019-05-26 11:20] VITALS: BP 147/89; PULSE 82; RESP 18; TEMP 36.5; O2SAT 99
--- NOTE | 2019-05-26 11:31 | IN_ITS ---
Date of service: 05/26/19 Time of Service: 10:42 PT Notes Inpatient Physical Therapy Evaluation Date: 05/26/2019 Referring Doctor: Kerry Lira MD PT Orders: PT CONSULT: Limited ability Precautions: Fall. Standard. Patient Profile/Admitting Diagnosis: Patient is a 74-year-old male with past medical history significant for atrial fibrillation, not on anticoagulation, who presented to the ED on 05/25/2019 with chief complaints of nausea and vertigo- like symptoms. Patient is diagnosed with paroxysmal atrial fibrillation, vertigo, and weight loss. 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 He has been independent with all aspects of ADLs without the need for an assistive device nor adaptive equipment. 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 He also has a garden that he tends to. Current Functional Limitations: Minimal balance impairment Equipment Owned/DME: [employer] that he does not use Subjective: Patient reports that he is going to be leaving in an hour from this hospital and hopes that his IV line gets removed. Patient is agreeable to a PT consult. He states that today, he does not feel any dizziness, headaches, nor any chest pain throughout PT session. Objective: General Observation: Patient seen sitting on chair upon arrival of PT and PT student. IV in L UE. Telemetry monitoring in place. Mental Status: Alert and oriented x 4 Pain: 0/10 Vital Signs: BP 147/84 mmHg, HR 76 bpm. ROM: Right Lower Extremity: Hip flexion WFL. Hip abduction WFL. Knee flexion WFL. Ankle dorsiflexion WFL. Ankle plantarflexion WFL. Left Lower Extremity: Hip flexion WFL. Hip abduction WFL. Knee flexion WFL. Ankle dorsiflexion WFL. Ankle plantarflexion WFL. Strength: Right Lower Extremity: Hip flexors 5/5. Hip abductors 5/5. Knee flexors 5/5. Knee extensors 5/5. Ankle dorsiflexors 5/5. Ankle plantarflexors 5/5. Left Lower Extremity:Hip flexors 5/5. Hip abductors 5/5. Knee flexors 5/5. Knee extensors 5/5. Ankle dorsiflexors 5/5. Ankle plantarflexors 5/5. Sensation: Intact as to pain and pressure on bilateral lower extremities. Bed Mobility/Transfers: Rolling I Supine to sit I Sit to supine I Sit to stand I Stand to sit I Bed to chair I Chair to bed I Gait: Patient was able to tolerate 150 feet of level surface ambulation using no assistive ambulatory device with just supervision assist and minimal verbal cues for recognizing environmental obstacles more as he tends to lean more on that side. Patient almost hit against objects on his left side twice or thrice. he states that he has been like this for a long time now. Balance: Static Sitting: Normal Dynamic Sitting: Normal Static Standing: Good Dynamic Standing: Good Special Tests: Mobility Limitations Standardized Measure [facility] 6 clicks Basic Mobility Inpatient Short Form: Raw Score: 22 CMS Score: 21% deficit 4-stage balance test: Patient was able to tolerate feet together but was unable to sustain semi-tandem, full tandem, and one-legged stance indicating increased risk for falls. Informed Consent/Education: Patient instructed in purpose of PT consult and plan of care. Assessment: Patient presents with clinical signs and symptoms consistent with current/admitting diagnoses that have resulted to mobility limitations as demonstrated by the following impairment level findings: 1. Impaired sitting/standing balance 2. Impaired activity tolerance Impairments are contributing to the following functional limitations: 1. Increased fall risk 2. Increased completion time for mobility ADL performance Patient is [place] a 21064 moderate complexity based on the following: History: Patient is a 74-year-old male with past medical history significant for atrial fibrillation, not on anticoagulation, who presented to the ED on 05/25/2019 with chief complaints of nausea and vertigo-like symptoms. Patient is diagnosed with paroxysmal atrial fibrillation, vertigo, and weight loss. Examination: Demonstrable impairment in balance with underlying impairments and functional limitations as documented above Presentation:Stable Decision Makin Moderate complexity DISCHARGE RECOMMENDATIONS: Patient will benefit from home health PT services in order to progress mobility level using least restrictive assistive ambulatory device/using no device, assess home safety, identify additional equipment needs, and establish a functional maintenance program that will increase ability of patient to remain at home. TREATMENT CODE/TIME: 34977 x 39 minutes beginning at 10:42 am. Thank you very much for this referral. Alem Richardson PT, DPT, CLT [facility]
[2019-05-26 11:59] VITALS: PULSE 74
--- NOTE | 2019-05-26 12:07 | PDOC.HHF2F ---
1. Encounter Date and Reason I certify that BARRY GRAYSON was seen by Kerry Lira on 05/26/19 and that I had a [id number] encounter with this patient that meets the physician face to face encounter requirements. 2. Clinical Findings Supporting Skilled Need and Homebound Status I certify that home health services are medically necessary, include either intermittent [place] [facility] and/or physical/speech therapy, and that this patient is homebound in that absences from the home require considerable and taxing effort and are infrequent or of short duration, or are attributable to the need to receive medical care. [X] (a) Attached documentation from encounter provides clinical findings supporting skilled need and homebound status (including what assistance patient requires to leave the home). The encounter with the patient was in whole, or in part, for the following medical condition, which is the primary reason for home health care: VERTIGO Intermediate: Medication assessment and teaching; HR and BP checks Physical Therapy: unstable gait: eval and treat 3. Certification and Authentication I certify that I composed the above information based on my clinical judgement relating to this patient's medical condition and, if applicable, clinical findings communicated to me by the NPP or inpatient physician who performed the Home Health Referral. All further orders will be obtained through Lydia Nixon (Community Based Physician - PCP)
--- NOTE | 2019-05-26 14:32 | PDOC.CMDIS ---
- If Service Date Differs Date of service: 05/26/19 Time of Service: 14:32 LACE Index Scoring Tool - Questions: Length of Stay (in days): 1 Acuity (Admit via E.D.?): Yes E.D. Visits: 3 - Answers: Total Score: 7 Risk of Readmission: Low Risk Care Management Discharge Reason for Hospitalization: Unsteady Discharge Plan: Seth will discharge home with no new services. He will follow up with his PCP and discharge plan of care, which includes an outpatient stress test. Seth will drive himself home in his own vehicle. Patient/Family Education Needs: Discharge plan, limitations, follow up and Ask Me Three.
--- NOTE | 2019-05-26 16:10 | NS.NUTBLAN_ITS ---
DESCRIPTION: Appreciate nutrition consult for mr. Jones who is hospitalized for dizziness and heart issues. It is reported he only eats granola bars which raises concerns. Met with Seth. He states he has a garden, cooks his own vegetables and gives them away as well. He cooks on a burner as his range is out of order. He cooks vegetables often and meat occasionally. He also reports eating Lean Cuisines a couple of times a day some days. He reports eating granola bars as a way to settle his stomach which has been upset, but he does not eat them regularly. He does not eat fruit. He drinks coffee, water and milk. He has a egg croissant from [employer] most mornings. INTERVENTION: Brief review of basics of good nutrition which he states he adheres to most days. He declines Meals on Wheels at this time. No concerns at this time regarding his nutritional choices overall. PLAN: He will continue to eat a variety of vegetables from his garden and supplement with prepared foods.
--- NOTE | 2019-05-26 16:27 | CHAPLAIN ---
Seth told me that he'd meet Rev. Allison Wallis, one of our on-call chaplains, and that Allison had led a graveside service when his brother . 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 In the summer he keeps a vegetable and flower garden and he finds taking care of his gardens relaxing.
== END 2019-05-26 12:45 | disposition home health service (06) ==
LOC: ER 09:53 → MS 10:11
PROVIDERS: Admitting Provider Internal Medicine; Emergency Provider Emergency Medicine; PCP Nurse Practitioner Family; Visit Provider Internal Medicine
DX: I48.0 Paroxysmal atrial fibrillation (principal); R42 Dizziness and giddiness; Z91.14 Patient's other noncompliance with medication regimen; F79 Unspecified intellectual disabilities; R63.4 Abnormal weight loss; I08.1 Rheumatic disorders of both mitral and tricuspid valves; Z71.3 Dietary counseling and surveillance
CPT/HCPCS: 36415; 70496; 70498; 80048; 80053; 85027; 93005; 93306; 96374; 97162; 97165; 99217; 99220; 99285; J1650; 82607; 83735; 83880; 84439; 84443; 84484; 93010; G0378; J2405; J3490

== ENCOUNTER 2019-05-30 03:19 | Emergency (ER) | payer MEDICARE, MEDICAID, SELFPAY ==
[2019-05-30 03:22] VITALS: BP 152/72; PULSE 56; RESP 16; TEMP 36.4; O2SAT 99
--- NOTE | 2019-05-30 03:30 | W.ED.GENAD ---
Discharge Plan Disposition Patient Disposition: HOME Condition: Good Discharge Details Chief Complaint: Abd Prob Clinical Impression: Nausea Primary Care Provider: Lydia Nixon ED Provider: Lm Castillo Meds and New Rx's Prescriptions: Continued diltiazem HCl 120 mg capsule,extended release 24hr 120 mg PO DAILY Qty: 30 RF: 1 aspirin [Aspir-81] 81 MG tablet,delayed release (DR/EC) 81 mg PO DAILY RF: 0 ondansetron 4 mg Tablet,Disintegrating 4 mg PO Q6H PRNRF: 0 multivitamin [Multiple Vitamins] Tablet 1 tab PO DAILY Qty: 30 RF: 0 metoprolol succinate 25 mg capsule,sprinkle,ER 24hr 12.5 mg PO DAILY Qty: 30 RF: 0 Discharge Instructions Additional Instructions: Please use your ondansetron at home for recurrent nausea. Continue your other medications to help control your heart rate. Follow-up with primary care. Return to ED for fever, vomiting, chest pain, abdominal pain, other problems or concerns. Referrals: Lydia Nixon, [facility]ER [Primary Care Provider] - Medical Decision Making Patient presenting with complaints of nausea and one episode of vomiting. He denies any pain. He denies vertigo or dizziness. He is rate controlled at this point. He did not take Zofran prior to coming in. He had previous admission and work-up for rapid A. fib, vertigo, nausea. At this point he is not endorsing any other symptoms other than nausea. We will give Zofran ODT and reevaluate. Patient feels much better after Zofran ODT and would like to go home. He is reminded that he has these medications at home to use. Follow up with PCP. Return to ED for fever, chest pain, abdominal pain, other concerns. Medical Records Medical records reviewed: Yes I reviewed the patient's medical records. HPI General Mode of arrival: ambulatory. Date/Time Provider Initiated Documentation: 05/30/19 03:23. Limitations to Documentation: no limitations. Information obtained by: patient. HPI Narrative: Patient presents to ED because of nausea and upset stomach. Patient was seen here last week for same and ended up being admitted for rapid A. fib and vertigo. Patient reports he has no vertigo or dizzy feeling at this point. He denies having chest pain or pressure. He denies shortness of breath. He denies abdominal pain. He had a little bit of vomiting earlier. He has Zofran ODT at home but did not take it. Related Data Home Medications Medication Instructions Recorded Confirmed aspirin [Aspir-81] 81 mg PO DAILY tab 01/10/13 05/30/19 diltiazem HCl 120 mg 120 mg PO DAILY #30 cap 02/04/19 05/30/19 capsule,extended release 24 hr ondansetron 4 mg PO Q6H PRN 05/25/19 05/30/19 metoprolol succinate 12.5 mg PO DAILY #30 cap 05/26/19 05/30/19 multivitamin [Multiple Vitamins] 1 tab PO DAILY #30 tab 05/26/19 05/30/19 Previous Rx's Medication Instructions Recorded diltiazem HCl 120 mg 120 mg PO DAILY #30 cap 02/04/19 capsule,extended release 24 hr metoprolol succinate 12.5 mg PO DAILY #30 cap 05/26/19 multivitamin [Multiple Vitamins] 1 tab PO DAILY #30 tab 05/26/19 Allergies Allergy/AdvReac Type Severity Reaction Status Date / Time No Known Allergies Allergy Unverified 05/30/19 03:27 General Stated Complaint: Abd Prob VEAD: 3 Review of Systems Review of Systems As documented in HPI otherwise negative as below. 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 Mildly hypertensive. Mild bradycardia. Const: WDWN elderlymale in NAD. HEENT: NC/AT. Normal facial exam. Eyes: No nystagmus Neck: Supple. Trachea midline. Lungs: Normal respiratory effort. Lungs are clear. Cor: Irr/Irr w/o murmur. Good radial pulses. GI: Soft. NT/ND. No guarding or rebound. Neuro: A+O x 3. CN II - XII grossly in tact. Normal speech, strength, sensation, steady gait. Skin: Warm and dry Course Vital Signs Temperature 97.5 F L 05/30/19 03:22 Pulse 56 L 05/30/19 03:22 Respiratory Rate 16 05/30/19 03:22 Blood Pressure 152/72 H 05/30/19 03:22 Pulse Oximetry 99 05/30/19 03:22 Temperature 97.5 F L 05/30/19 03:22 Temperature Source Temporal Artery Scan 05/30/19 03:22 Pulse 56 L 05/30/19 03:22 Respiratory Rate 16 05/30/19 03:22 Respiratory Effort 05/30/19 03:22 Blood Pressure 152/72 H 05/30/19 03:22 Pulse Oximetry 99 05/30/19 03:22 Oxygen Delivery Method Room Air 05/30/19 03:22 Oxygen Flow Rate 0 05/30/19 03:22 Pain Level 0 05/30/19 03:26
[2019-05-30] MEDS: Ondansetron O.D.T. 4 MG TABEF PO (03:41)
[2019-05-30 04:31] VITALS: BP 137/71; PULSE 66; RESP 16; O2SAT 92
== END 2019-05-30 04:25 | disposition home or self-care (01) ==
LOC: ER 04:14
PROVIDERS: Emergency Provider Emergency Medicine; PCP Nurse Practitioner Family
DX: R11.0 Nausea (principal)
CPT/HCPCS: 99283

== ENCOUNTER 2019-06-04 09:18 | Outpatient (CLI) | payer MEDICARE, MEDICAID, SELFPAY | END 2019-06-04 09:38 | PROVIDERS: PCP Nurse Practitioner Family; Visit Provider Internal Medicine Interventional Cardiology | DX: I48.0 Paroxysmal atrial fibrillation (principal); I47.2 Ventricular tachycardia; I73.9 Peripheral vascular disease, unspecified; I71.4 Abdominal aortic aneurysm, without rupture | CPT/HCPCS: 99204; 99215; 93005; 93010 ==

== ENCOUNTER 2020-08-01 03:11 | Emergency (ER) | payer MEDICARE, MEDICAID, SELFPAY ==
[2020-08-01 03:14] VITALS: BP 142/78; PULSE 76; RESP 20; TEMP 36.4; O2SAT 97
--- NOTE | 2020-08-01 03:15 | DI.RAD_ITS ---
EXAM: XR HIP LT COMPLETE AP PELVIS CLINICAL HISTORY: 2 weeks left hip pain. TECHNIQUE: 2D digital imaging was performed. COMPARISON: No exams were available for comparison FINDINGS: BONES: No acute fracture is present. No bony destructive lesion is seen. The sacrum is largely obscur ed by overlying bowel. JOINTS: No dislocation present. Mild narrowing of the hip joints bilaterally. SOFT TISSUE: Normal. IMPRESSION: No acute abnormality. DATA REPOSITORY: RADIATION DOSE DELIVERED:
--- NOTE | 2020-08-01 03:31 | W.ED.GENAD ---
Discharge Plan Disposition Patient Disposition: HOME Condition: Good Discharge Details Clinical Impression: Hip pain, left Primary Care Provider: Lydia Nixon ED Provider: Baldo Denney Home Meds and New Rx's Prescriptions: New lidocaine [Lidoderm] 1 PATCH patch 1 patch Topical Q24H Qty: 4 RF: 0 acetaminophen 500 mg capsule 1,000 mg PO Q6H PRN10 Days Qty: 80 RF: 0 Continued Eliquis 5 mg tablet 5 mg PO BID Qty: 180 RF: 3 diltiazem HCl 120 mg capsule,extended release 24hr 120 mg PO DAILY Qty: 90 RF: 3 metoprolol succinate 25 mg tablet extended release 24 hr 12.5 mg PO DAILY Qty: 45 RF: 3 ondansetron 4 mg Tablet,Disintegrating 4 mg PO Q6H PRNRF: 0 Discharge Instructions Instructions: Arthritis (ED) Additional Instructions: At this time your x-ray showed no evidence of fracture. His symptoms are likely from chronic and worsening arthritis. Please take 1000 mg of Tylenol every 6 hours as needed for pain control. Please use the Lidoderm patches to help with the pain. If you notice any worsening of your symptoms, or any new symptoms such as vomiting, diarrhea, fever, chills, shortness of breath, chest pain, numbness, weakness, or fainting , please return immediately to the emergency department for reevaluation. Please follow up with your primary care provider as soon as possible for reassessment and reevaluation. As always, it was a pleasure participating in your medical care today. Referrals: Lydia Nixon, LORY [Primary Care Provider] - Medical Decision Making 75-year-old male with a past medical history of atrial fibrillation on Eliquis, hypertension, presents today for evaluation of left hip pain. Patient states that for the last 2 weeks he has had mild pain in his left hip, it is worse when he wakes up in the morning, and improves as he gets up walks around and ambulates. He states that it causes him difficulty getting his socks on in the morning and that this is impacted his current life. He denies any falls or traumas, he feels that the pain began when he was lying on his left hip 1 night when he was sleeping, and has continued to increase the since then. He denies numbness or tingling. He denies any back pain. He denies any other significant pain or trauma. He does admit to mild achiness in his knee but no severe pain. No other complaints at this time. He has not taken any medication for the pain except for occasional BenGay. Physical exam at this time is notably unremarkable, no significant tenderness, restriction or other abnormality. I suspect the cause of the patient's symptoms is likely from notable chronic arthritis. We will get an x-ray to rule out acute fracture, or malignancy which I feel notably less likely. Will recommend maximum dose Tylenol and Lidoderm patch for home use. 4:12 AM X-ray results have returned negative for acute process per virtual radiology. Signs and symptoms clinically consistent with arthritis and inconsistent with acute life-threatening etiology at this time. Patient will be discharged home with Tylenol, Lidoderm patch, close follow-up with PCP on outpatient basis. I have extensively reviewed the treatment plan and discharge instructions with the patient. I have addressed all patient concerns at this time. The patient was made aware of what symptoms to monitor for that would warrant a return to the emergency department. Discussed the plan with the patient, they demonstrate verbal understanding and agreement with our assessment and plan at this time. FINDINGS: Bones/joints: Unremarkable. No acute fracture. Soft tissues: Unremarkable. IMPRESSION: No acute findings. Thank you for allowing us to participate in the care of your patient. Dictated and Authenticated by: Tee Car MD 08/01/2020 4:08 AM Eastern Time ([place] & [place]) HPI General Date/Time Provider Initiated Documentation: 08/01/20 03:14. [facility] Narrative: 75-year-old male with a past medical history of atrial fibrillation on Eliquis, hypertension, presents today for evaluation of left hip pain. Patient states that for the last 2 weeks he has had mild pain in his left hip, it is worse when he wakes up in the morning, and improves as he gets up walks around and ambulates. He states that it causes him difficulty getting his socks on in the morning and that this is impacted his current life. He denies any falls or traumas, he feels that the pain began when he was lying on his left hip 1 night when he was sleeping, and has continued to increase the since then. He denies numbness or tingling. He denies any back pain. He denies any other significant pain or trauma. He does admit to mild achiness in his knee but no severe pain. No other complaints at this time. He has not taken any medication for the pain except for occasional BenGay. Related Data Home Medications Medication Instructions Recorded Confirmed ondansetron 4 mg PO Q6H PRN 05/25/19 08/01/20 apixaban 5 mg tablet 5 mg PO BID #180 tab-cap 02/27/20 08/01/20 diltiazem HCl 120 mg 120 mg PO DAILY #90 tab-cap 06/28/20 08/01/20 capsule,extended release 24 hr metoprolol succinate 25 mg 12.5 mg PO DAILY #45 tab-cap 06/28/20 08/01/20 tablet,extended release 24 hr acetaminophen 1,000 mg PO Q6H PRN 10 Days #80 cap 08/01/20 lidocaine [Lidoderm] 1 patch TOPICAL Q24H #4 patch 08/01/20 Previous Rx's Medication Instructions Recorded apixaban 5 mg tablet 5 mg PO BID #180 tab-cap 02/27/20 diltiazem HCl 120 mg 120 mg PO DAILY #90 tab-cap 06/28/20 capsule,extended release 24 hr metoprolol succinate 25 mg 12.5 mg PO DAILY #45 tab-cap 06/28/20 tablet,extended release 24 hr acetaminophen 1,000 mg PO Q6H PRN 10 Days #80 cap 08/01/20 lidocaine [Lidoderm] 1 patch TOPICAL Q24H #4 patch 08/01/20 Allergies Allergy/AdvReac Type Severity Reaction Status Date / Time No Known Allergies Allergy Verified 08/01/20 03:23 General Stated Complaint: Orthopedic VEDA: 4 Review of Systems All systems reviewed & are unremarkable except as noted in HPI and below [facility] Medical History (Updated 08/01/20 @ 03:38 by Baldo Denney DO) Abdominal aortic aneurysm (AAA) without rupture (02/27/17) 02/27/2017: 3.1 CM, pt declined following; 01/2019: US repeated and showed NO AAA --> resolved Atrial fibrillation (01/28/13) 07/2018: [id number] SCORE =1 Pulmonary hypertension Unspecified intellectual disabilities (01/09/12) Surgical History Repair of inguinal hernia Family History Brother , 79 y/o, natural causes No problems noted. 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 3.ENT: Atraumatic external nose and ears. Moist MM. Neck: Symmetric, trachea midline, No thyromegaly. 4.CVS: +S1/S2, No murmurs or gallops. Peripheral pulses 2+ and equal in all extremities. Brisk capillary refill in all extremities. 5.RESP: Unlabored respiratory effort. Clear to auscultation bilaterally. No wheezes rales or rhonchi 6.GI: Soft, Nontender/Nondistended, No hepatosplenomegaly. No guarding or rebound. 7.MSK: Normocephalic/Atraumatic, Extremities w/o deformity or ttp No cyanosis or clubbing, Normal movement of all extremities. Left hip demonstrates no pain or tenderness over the greater trochanter, no significant pain with logroll of the left knee. Left knee: The knee is stable to varus, valgus, and anterior drawer stress. No deformity. Patellar grind test is negative. Noam test is negative for pain. Patient is able to walk without difficulty. No edema or warmth to the joint. No ttp to the patella, tibial plateau, or fibular head. 8.Skin: Warm, Dry. No rashes or lesions. 9.Neuro: brim stretcher II-XII grossly intact. Sensation grossly intact, no focal neurologic deficits. 10.Psych: (AAO) x3. Appropriate mood and affect Course Vital Signs Vital signs: Vital Signs Temperature 36.4 C L 08/01/20 03:14 Pulse 76 11/01/20 03:14 Respiratory Rate 20 08/01/20 03:14 Blood Pressure 142/78 H 08/01/20 03:14 Pulse Oximetry 97 08/01/20 03:14 Temperature 36.4 C L 08/01/20 03:14 Temperature Source Tympanic 08/01/20 03:14 Pulse 76 08/01/20 03:14 Respiratory Rate 20 08/01/20 03:14 Respiratory Effort 08/01/20 03:21 Blood Pressure 142/78 H 08/01/20 03:14 Pulse Oximetry 97 08/01/20 03:14 Oxygen Delivery Method Room Air 08/01/20 03:14 Oxygen Flow Rate 0 08/01/20 03:14 Pain Level 4 08/01/20 03:14
[2020-08-01] MEDS: Acetaminophen 500 MG TAB 1000 MG PO (03:34)
[2020-08-01] MEDS: Lidocaine 5% Patch 1 PATCH TP (03:34)
--- NOTE | 2020-08-01 04:08 | DI.VRAD_ITS ---
PROCEDURE INFORMATION: Exam: XR Left Hip with Pelvis when Performed Exam date and time: 08/01/2020 3:27 AM Age: 75 years old Clinical indication: Other: 2 weeks of left hip pain TECHNIQUE: Imaging protocol: XR Left hip with pelvis when performed. Views: 2 or 3 views. COMPARISON: CT thorax abd/pel CTA 02/03/2019 3:53 AM FINDINGS: Bones/joints: Unremarkable. No acute fracture. Soft tissues: Unremarkable. IMPRESSION: No acute findings. Dictated and Authenticated by: Tee Car MD. Ordering:MEHRAN Bland MD
== END 2020-08-01 04:20 | disposition home or self-care (01) ==
LOC: ER 04:23
PROVIDERS: Emergency Provider Student in an Organized Health Care Education/Training Program; PCP Nurse Practitioner Family
DX: M25.552 Pain in left hip (principal); I10 Essential (primary) hypertension
CPT/HCPCS: 99284; 73502

== ENCOUNTER 2021-03-10 22:44 | Observation (INO) | payer MEDICARE, MEDICAID, SELFPAY ==
[2021-03-10 22:51] VITALS: BP 144/76; PULSE 87; RESP 18; TEMP 36.6; O2SAT 97
--- NOTE | 2021-03-10 23:00 | RT.EKG_ITS ---
APPROVED REPORT Exam: Resting ECG Reason for Exam: RULE OUT Patient Location: E HR:79 bpm ECG Measurements Heart Rate 79 AXIS LA [id number] P [id number] QRSd 97 QRS 26 QT 373 T 25 QTc 428 Conclusion Atrial fibrillation...V-rate 61- 87, irreg A-activity Physician: Atrial fibrillation, no significant ST elevation or depression. Q-wave in lead III, uncha nged from prior EKG in 2019. No evidence of STEMI. Intervals stable.
--- NOTE | 2021-03-10 23:17 | ED.GENADUL_ITS ---
Discharge Plan Disposition Patient Disposition: [facility] INPATIENT Condition: Improving Discharge Details Chief Complaint: Abd Prob Clinical Impression: Enteritis, Nausea, Dehydration Primary Care Provider: Lydia Nixon ED Provider: Baldo Denney Home Meds and New Rx's Prescriptions: No Action acetaminophen 500 mg tablet 1,000 mg PO BID PRN (Reason: pain) Qty: 180 RF: 3 Eliquis 5 mg tablet 5 mg PO BID Qty: 180 RF: 3 diltiazem HCl 120 mg capsule,extended release 24hr 120 mg PO DAILY Qty: 90 RF: 3 metoprolol succinate 25 mg tablet extended release 24 hr 12.5 mg PO DAILY Qty: 45 RF: 3 multivitamin Tablet 1 tab PO DAILY Qty: 90 RF: 3 ondansetron 4 mg Tablet,Disintegrating 4 mg PO Q6H PRNRF: 0 Medical Decision Making 75-year-old male with a past medical history of A. fib on Eliquis, high blood pressure, presents today for an upset stomach. Patient states that for the last 6 hours he has had mild nausea but has not been able to vomit. He denies any abdominal pain whatsoever. He denies any chest pain, chest tightness, shortness of breath chest heaviness. Past surgical history is positive for an inguinal hernia repair greater than 10 years ago, but no other surgeries. He denies any diarrhea. He is having regular bowel movements. He denies eating anything new or different. No other complaints at this time. Physical exam is notably reassuring, no abdominal tenderness, no pain at McBurney's point. Negative Erickson sign. Symptoms are very reassuring. No signs of an acute surgical abdomen whatsoever. We will gently rehydrate, ev aluate for atypical cardiac etiology, give Zofran, GI cocktail, monitor closely and reassess. I did get the patient up and ambulated well. He has no nystagmus. No neurologic deficits. Symptoms inconsistent with cerebellar stroke. 3:22 AM Patient's laboratory work-up is returned. Normal white count. Hemoglobin stable. CBC not suggestive of GI bleed. Sodium electrolytes normal. BUN is slightly elevated at 32, suggestive of dehydration. Transaminases, troponin and EKG are all normal. Lipase normal. CT scan shows evidence of mild enteritis, minimal stranding within the pericolonic fat involving the transverse colon however this is felt by radiology to be secondary to the mild mesenteric enteritis noted adjacent to it. Repeat abdominal exam continues to show no abdominal tenderness. Patient has been given Zofran Reglan and redosing of these medications, and in spite of this the patient remains notably nauseous. It took about an hour and 1/2 to 2 hours for the patient to get down a single cracker. He feels notably nauseous whenever he gets up or moves at all. Patient is made it abundantly clear that he does not feel comfortable going home. The patient does live alone, and has no assistance or help at home at all. Patient was unable to do any oral liquids or tolerate any oral liquids at this time. I do not feel that the patient is the best candidate for discharge home in this current state. I do feel that admission for continued IV fluids and antiemetics as needed is appropriate for this elderly male who lives alone. We will contact the hospitalist for overnight admission. 3:55 AM Discussed the case with the hospitalist Dr. Sarmiento, he agrees with the assessment and plan. I will place admission orders on his behalf. I have extensively reviewed the treatment plan with the patient. I have addressed all patient concerns at this time. I have also discussed the plan with the admitting physician and they agree with the current assessment and plan and have agreed to assume responsibility for the patient. All parties demonstrate verbal understanding and agreement with our assessment and plan at this time. The documentation in this chart was dictated using [employer] dictation software. Please excuse any dictation errors. EKG 23: 11 Atrial fibrillation, no significant ST elevation or depression. Q-wave in lead III, unchanged from prior EKG in 2019. No evidence of STEMI. Intervals stable. FINDINGS: Lungs: Lung bases are clear. Heart: Heart is enlarged. Liver: Unremarkable. No mass. Gallbladder and bile ducts: Unremarkable. No calcified stones. No ductal dilation. Pancreas: No mass. No pancreatic ductal dilation or peripancreatic inflammatory stranding. Spleen: No splenomegaly. No mass. Adrenal glands: No adrenal mass. Kidneys and ureters: Ovoid 0.8 cm hypodensity within the superior pole the left kidney is too small to characterize, no imaging follow-up necessary. No hydronephrosis or perinephric stranding. Ureters normal in course and caliber. Stomach and bowel: Proximal small bowel is decompressed limiting evaluation with mild mural thickening as well as associated inflammatory changes within the adjacent mesentery. No bowel obstruction. There is moderate sigmoid diverticulosis without focal colonic mural thickening. There is pericolonic mesenteric stranding in the area of the transverse colon, however this is also in the area of suspected small-bowel mesenteric stranding and may be a secondary finding. Mild colonic stool burden. Appendix: No evidence of acute appendicitis. Intraperitoneal space: No free air. No significant fluid collection. Vasculature: Within normal limits. No abdominal aortic aneurysm or dissection. Lymph nodes: No pathologically enlarged lymph nodes. Urinary bladder: Unremarkable as visualized. Reproductive: Prostate gland is enlarged. Bones/joints: Moderate lumbar spondylosis. No acute fracture. Soft tissues: Trace/mild fat projects within the inguinal canals. IMPRESSION: 1. Proximal small bowel is decompressed limiting evaluation with mild mural thickening and associated mesenteric inflammatory changes. Correlate clinically for symptoms of acute enteritis. 2. Mild stranding within the pericolonic fat involving the transverse colon, however without focal mural thickening and this roughly corresponds to area of small-bowel mesenteric inflammatory changes, suspect secondary findings however clinical correlation is recommended. Thank you for allowing us to participate in the care of your patient. Dictated and Authenticated by: Jose Santoyo MD 03/11/2021 1:29 AM Eastern Time ([place] & [place]) HPI General Date/Time Provider Initiated Documentation: 03/10/21 22:51 . HPI Narrative: 75-year-old male with a past medical history of A. fib on Eliquis, high blood pressure, presents today for an upset stomach. Patient states that for the last 6 hours he has had mild nausea but has not been able to vomit. He denies any abdominal pain whatsoever. He denies any chest pain, chest tightness, shortness of breath chest heaviness. Past surgical history is posi tive for an inguinal hernia repair greater than 10 years ago, but no other surgeries. He denies any diarrhea. He is having regular bowel movements. He denies eating anything new or different. No other complaints at this time. Related Data Home Medications Medication Instructions Recorded Confirmed ondansetron 4 mg PO Q6H PRN 05/25/19 08/12/20 apixaban 5 mg tablet 5 mg PO BID #180 tab-cap 02/27/20 03/10/21 diltiazem HCl 120 mg 120 mg PO DAILY #90 tab-cap 20 03/10/21 capsule,extended release 24 hr metoprolol succinate 25 mg 12.5 mg PO DAILY #45 tab-cap 20 03/10/21 tablet,extended release 24 hr multivitamin 1 tab PO DAILY #90 tab 08/02/20 08/12/20 acetaminophen 500 mg tablet 1,000 mg PO BID PRN #180 tab 08/12/20 08/12/20 Previous Rx's Medication Instructions Recorded apixaban 5 mg tablet 5 mg PO BID #180 tab-cap 02/27/20 diltiazem HCl 120 mg 120 mg PO DAILY #90 tab-cap 06/28/20 capsule,extended release 24 hr metoprolol succinate 25 mg 12.5 mg PO DAILY #45 tab-cap 06/28/20 tablet,extended release 24 hr multivitamin 1 tab PO DAILY #90 tab 08/02/20 acetaminophen 500 mg tablet 1,000 mg PO BID PRN #180 tab 08/12/20 Allergies Allergy/AdvReac Type Severity Reaction Status Date / Time No Known Allergies Allergy Verified 08/12/20 14:26 General Stated Complaint: Abd Prob VEDA: 4 Review of Systems All systems reviewed & are unremarkable except as noted in HPI and below [facility] Medical History (Updated 03/11/21 @ 03:56 by Baldo Denney DO) Abdominal aortic aneurysm (AAA) without rupture (02/27/17) 02/27/2017: 3.1 CM, pt declined following; 01/2019: US repeated and showed NO AAA --> resolved Atrial fibrillation (01/28/13) 07/2018: [id number] SCORE =1 Pulmonary hypertension Unspecified intellectual disabilities (01/09/12) Surgical History Repair of inguinal hernia Family History Brother , 79 y/o, natural causes No problems noted. 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 3.ENT: Atraumatic external nose and ears. Moist MM. Neck: Symmetric, trachea midline, No thyromegaly. 4.CVS: +S1/S2, No murmurs or gallops. Peripheral pulses 2+ and equal in all extremities. Brisk capillary refill in all extremities. 5.RESP: Unlabored respiratory effort. Clear to auscultation bilaterally. No wheezes rales or rhonchi 6.GI: Soft, Nontender/Nondistended, No hepatosplenomegaly. No guarding or rebound. No pain at McBurney's point, negative Erickson sign. Genital exam demonstrates no scrotal or testicular tenderness. No penile tenderness. No flank or CVA tenderness. 7.MSK: Normocephalic/Atraumatic, Extremities w/o deformity or ttp No cyanosis or clubbing, Normal movement of all extremities 8.Skin: Warm, Dry. No rashes or lesions. 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 Sensation grossly intact, no focal neurologic deficits. 10.Psych: (AAO) x3. Appropriate mood and affect Course Vital Signs Vital signs: Vital Signs Temperature 36.6 C 03/10/21 22:51 Pulse 87 03/10/21 22:51 Respiratory Rate 18 03/10/21 22:51 Blood Pressure 144/76 H 03/10/21 22:51 Pulse Oximetry 97 03/10/21 22:51 Temperature 36.6 C 03/10/21 22:51 Pulse 87 03/10/21 22:51 Respiratory Rate 18 03/10/21 22:51 Respiratory Effort Non-Labored 03/10/21 23:09 Blood Pressure 144/76 H 03/10/21 22:51 Blood Pressure Position Supine 03/10/21 22:51 Pulse Oximetry 97 03/10/21 22:51 Oxygen Delivery Method Room Air 03/10/21 22:51 Oxygen Flow Rate 0 03/10/21 22:51 Pain Level 0 03/10/21 22:51
[2021-03-10 23:29] LABS: Abs Immature Grans 0.03 10^3/uL (0.0-0.06); Absolute Basophil Count 0.03 10^3/uL (0.0-0.2); Absolute Eosinophil Count 0.17 10^3/uL (0.0-0.7); Absolute Lymphocyte Count 1.77 10^3/uL (1.2-3.4); Absolute Monocyte Count 0.46 10^3/uL (0.1-0.8); Absolute Neutrophil Count 3.54 10^3/uL (1.2-6.7); Basophils % 0.5; Eosinophils % 2.8; HCT 41.8 % (40.0-50.0); Immature Grans % 0.5; Lymphocytes % 29.5; MCH 32.8 pg (27.0-33.0); MCHC 33.5 % (32.0-36.0); MCV 97.9 fL (80-95); MPV 11.2 fL (8.0-11.0); Monocytes % 7.7; Nucleated RBC 0 %; Platelet Count 141 10^3/uL (130-400); RBC 4.27 10^6/uL (4.36-5.78); RDW 13.5 % (11.8-14.1); RDW-SD 48.3 fL
[2021-03-10] MEDS: Ondansetron 4 MG/2 ML VIAL IVP (23:29)
[2021-03-10] MEDS: Normal Saline 1,000 ML 1000 ML IV (23:29)
[2021-03-10 23:41] LABS: INR 1.1 (0.9-1.1); PTT Activated 25.2 sec (21.0-27.5); Prothrombin Time 11.4 sec (9.3-11.0)
[2021-03-10 23:47] LABS: ALT 36 U/L (16-63); AST 26 U/L (15-37); Albumin 3.7 g/dL (3.4-5.0); Alkaline Phosphatase 111 U/L (46-116); BUN 32 mg/dL (7-18); Bilirubin, Total 0.6 mg/dL (0.2-1.0); Calcium 8.8 mg/dL (8.5-10.1); Chloride 107 mmol/L (98-107); Glucose 103 mg/dL (74-106); Lipase 117 U/L (73-393); Potassium 3.6 mmol/L (3.5-5.1); Sodium 143 mmol/L (136-145); Total Protein 7.5 g/dL (6.4-8.2); Troponin I < 0.05 ng/mL (<0.06)
[2021-03-10 23:58] VITALS: BP 135/84; PULSE 86; RESP 16; TEMP 36.3; O2SAT 98
[2021-03-11] VITALS (14 sets, daily range): BP systolic 122–143; BP diastolic 74–77; PULSE 80–96; RESP 13–30; TEMP 36.3; O2SAT 94–100
--- NOTE | 2021-03-11 | DI.CT_ITS ---
Exam(s) CT ABDOMEN PELVIS W EXAM: CT ABDOMEN PELVIS W CLINICAL HISTORY: nausea and vomiting, r/o obstruction TECHNIQUE: Imaging Protocol: Axial computed tomography images with coronal and sagittal reformatted images were created and reviewed CONTRAST MATERIAL: Intravenous: Omnipaque 350 Contrast volume:100 mL Oral: No COMPARISON: CT CT thorax abd/pel CTA from 02/03/[address] BRAIN NECK CTA from 05/25/2019 FINDINGS: The examination is limited due to patient motion artifact. ABDOMEN: Lung Bases: Normal where visualized. Liver: Normal density. No measurable mass. Portal, Superior Mesenteric, and Splenic Veins: Unremarkable. Gallbladder and Biliary Tract: No radiodense calculus or dilation. Pancreas: Normal density, no abnormal calcifications or inflammatory process. Spleen: Normal. Adrenals: No masses seen. Kidneys: Normal size, contour and axis. No radiodense stones or obstructive uropathy. There is a stab le simple cyst in the superior pole of the left kidney. No further follow-up is recommended. Abdominal Aorta: Abdominal portion non-dilated. Mild atherosclerosis. Bowel: No evidence of bowel obstruction. There is mild mural thickening seen in the proximal small b owel. There also appears to be mild infiltration of the adjacent mesentery. This may represent a mi ld inflammatory or infectious enteritis. Appendix is unremarkable. There is diverticulosis in the co ruddy but no evidence of acute diverticulitis. Peritoneal Cavity: No ascites, collection or mesenteric inflammatory response. No free air.Small henna ateral fat containing inguinal hernia are again noted. Lymph Nodes: Within normal limits. Bones: Moderately severe degenerative changes are seen in the spine. There is a right convex lumbar scoliosis. Stable sclerotic foci seen in the sacrum and L5 vertebral body Soft Tissues: Unremarkable. PELVIS: Bladder: Symmetric distention, no gross wall thickening. Reproductive Organs: Enlarged prostate gland. Lymph Nodes: Within normal limits. Bones: Please see the above discussion. IMPRESSION: Question of mild thickening of the wall of the proximal small bowel with stranding in the adjacent me sentery. This may represent an infectious/inflammatory enteritis. Please correlate clinically. RADIATION DOSE DELIVERED: 960.13mGy.cm Total DLP DATA REPOSITORY: All CT scans at this facility are submitted to the National Radiology Data Registry (NRDR) Dose Index Registry (DIR) with the [employer] (ACR). RADIATION OPTIMIZATION: All CT scans at this facility use at least one of these dose optimization te chniques: automated exposure control; mA and/or kV adjustment per patient size (includes targeted exa ms where dose is matched to clinical indication); or iterative reconstruction.
[2021-03-11] MEDS: Omnipaque 350 MG/ML 100 ML BTL IJ (00:46)
[2021-03-11] MEDS: Normal Saline Flush 10 ML SYR IVP ×2 (00:46→05:43)
[2021-03-11] MEDS: Normal Saline - Diluent 50 ML VIAL IV (00:47)
--- NOTE | 2021-03-11 01:30 | DI.VRAD_ITS ---
PROCEDURE INFORMATION: Exam: CT Abdomen And Pelvis With Contrast Exam date and time: 03/11/2021 12:06 AM Age: 75 years old Clinical indication: Nausea and vomiting; Prior surgery; Surgery date: 6+ months; Surgery type: Hernia TECHNIQUE: Imaging protocol: Computed tomography of the abdomen and pelvis with contrast. Radiation optimization: All CT scans at this facility use at least one of these dose optimization techniques: automated exposure control; mA and/or kV adjustment per patient size (includes targeted exams where dose is matched to clinical indication); or iterative reconstruction. Contrast material: [id number]; Contrast volume: 100 ml; Contrast route: INTRAVENOUS (IV); COMPARISON: CT thorax abd/pel CTA 02/03/2019 3:53 AM FINDINGS: Lungs: Lung bases are clear. Heart: Heart is enlarged. Liver: Unremarkable. No mass. Gallbladder and bile ducts: Unremarkable. No calcified stones. No ductal dilation. Pancreas: No mass. No pancreatic ductal dilation or peripancreatic inflammatory stranding. Spleen: No splenomegaly. No mass. Adrenal glands: No adrenal mass. Kidneys and ureters: Ovoid 0.8 cm hypodensity within the superior pole the left kidney is too small to characterize, no imaging follow-up necessary. No hydronephrosis or perinephric stranding. Ureters normal in course and caliber. Stomach and bowel: Proximal small bowel is decompressed limiting evaluation with mild mural thickening as well as associated inflammatory changes within the adjacent mesentery. No bowel obstruction. There is moderate sigmoid diverticulosis without focal colonic mural thickening. There is pericolonic mesenteric stranding in the area of the transverse colon, however this is also in the area of suspected small-bowel mesenteric stranding and may be a secondary finding. Mild colonic stool burden. Appendix: No evidence of acute appendicitis. Intraperitoneal space: No free air. No significant fluid collection. Vasculature: Within normal limits. No abdominal aortic aneurysm or dissection. Lymph nodes: No pathologically enlarged lymph nodes. Urinary bladder: Unremarkable as visualized. Reproductive: Prostate gland is enlarged. Bones/joints: Moderate lumbar spondylosis. No acute fracture. Soft tissues: Trace/mild fat projects within the inguinal canals. IMPRESSION: 1. Proximal small bowel is decompressed limiting evaluation with mild mural thickening and associated mesenteric inflammatory changes. Correlate clinically for symptoms of acute enteritis. 2. Mild stranding within the pericolonic fat involving the transverse colon, however without focal mural thickening and this roughly corresponds to area of small-bowel mesenteric inflammatory changes, suspect secondary findings however clinical correlation is recommended. Dictated and Authenticated by: Jose Santoyo MD. Ordering:MEHRAN Bland MD
[2021-03-11] MEDS: Ondansetron 4 MG/2 ML VIAL (02:02)
[2021-03-11] MEDS: Metoclopramide 10 MG/2 ML VIAL (02:03)
[2021-03-11 03:36] LABS: Source Nasal/Nares
[2021-03-11] MEDS: Normal Saline 1,000 ML 150 ML IV (05:43)
--- NOTE | 2021-03-11 06:57 | HPE_ITS ---
Date of service: 03/11/21 Time of Service: 06:58 Assessment and Plan Assessment and plan (1) Enteritis: Status: Acute Assessment and plan: He likely has a viral enteritis. His labs will be rechecked this morning. He is on normal diet. He has ondansetron ordered for nausea. His care will be by the day hospitalist. If he is improved he may be able be discharged. He does live by himself he seems to have some limited intellectual capabilities. He apparently has no close relatives. (2) Nausea: Status: Acute (3) Dehydration: Status: Acute History of Present Illness History of Present Illness Chief Complaint: Nausea and not feeling well Narrative: This 75-year-old male emergency department late last night because of not feeling well and nausea and retching. He ate a butter sandwich and potato/egg salad yesterday for his oral intake. He began having nausea and not feeling well last night and came emergency department for evaluation. He has not been around anyone else has been ill. He lives by himself. 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 He has had both of his coronavirus vaccines. He does not recall having symptoms like this in the past. He denies any particular food intolerances. He feels a bit improved this morning and thinks he has a better appetite. Review of Systems Constitutional Constitutional: Denies body ache(s), Denies chills, Denies fever(s) and Reports poor appetite Cardiovascular Cardiovascular: Denies chest pain and Denies dyspnea Respiratory Respiratory: Denies cough and Denies dyspnea Gastrointestinal Gastrointestinal: Denies change in bowel habits, Denies diarrhea, Reports nausea, Denies vomiting and Denies hematemesis Genitourinary Genitourinary: Denies difficulty urinating, Denies urinary hesitancy and Denies urinary urgency [facility] Medical History (Updated 03/11/21 @ 03:56 by Baldo Denney DO) Abdominal aortic aneurysm (AAA) without rupture (02/27/17) 02/27/2017: 3.1 CM, pt declined following; 01/2019: US repeated and showed NO AAA --> resolved Atrial fibrillation (01/28/13) 07/2018: [id number] SCORE =1 Pulmonary hypertension Unspecified intellectual disabilities (01/09/12) Surgical History Repair of inguinal hernia Family History Brother , 79 y/o, natural causes No problems noted. 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 Pets and animals: No What type of physical activity do you participate in: walking Frequency: daily Seatbelt use: always Do you feel safe at home: Yes Do you feel safe in your relationship?: Yes Meds Allergies and Home Medications Allergies Allergy/AdvReac Type Severity Reaction Status Date / Time No Known Allergies Allergy Verified 03/11/21 03:58 Home Medications Medication Instructions Recorded Confirmed Type ondansetron 4 mg PO Q6H PRN 05/25/19 08/12/20 History apixaban 5 mg tablet 5 mg PO BID #180 tab-cap 02/27/20 03/10/21 Rx diltiazem HCl 120 mg 120 mg PO DAILY #90 tab-cap 06/28/20 03/10/21 Rx capsule,extended release 24 hr metoprolol succinate 25 mg 12.5 mg PO DAILY #45 tab-cap 06/28/20 03/10/21 Rx tablet,extended release 24 hr multivitamin 1 tab PO DAILY #90 tab 08/02/20 08/12/20 Rx acetaminophen 500 mg tablet 1,000 mg PO BID PRN #180 tab 08/12/20 08/12/20 Rx Exam Const General: cooperative, comfortable and no acute distress Orientation: alert, awake and oriented x3 Limitations: mental status not altered Neck Neck: normal visual inspection and no lymphadenopathy Resp Effort & Inspection: normal respiratory effort Auscultation: no rales, no rhonchi and no wheezes Cardio Jugular venous pressure: no JVD Rate: regular rate Rhythm: regular rhythm Heart Sounds: S1 normal, S2 normal, no gallops and no murmurs GI Inspection: normal to inspection, no abdominal wall ecchymosis and non-distended Palpation: soft, not firm and nontender Auscultation: normal bowel sounds Neuro General: patient alert and patient awake Cranial Nerves: CN's II-XI intact bilaterally and tongue midline Speech: speech normal Extrem General: no edema Results Labs Result diagrams: 03/10/21 23:10 03/10/21 23:10 Labs: Laboratory Results - last 24 hr 03/10/21 03/10/21 03/10/21 23:10 23:10 23:10 WBC 6.00 RBC 4.27 L Hgb 14.0 Hct 41.8 MCV 97.9 H MCH 32.8 MCHC 33.5 RDW 13.5 Plt Count 141 MPV 11.2 H Immature Gran % 0.5 Neutrophils % 59.0 Lymphocytes % 29.5 Monocytes % 7.7 Eosinophils % 2.8 Basophils % 0.5 Nucleated RBC % 0 Absolute Neutrophils 3.54 Absolute Lymphocytes 1.77 Absolute Monocytes 0.46 Absolute Eosinophils 0.17 Absolute Basophils 0.03 PT 11.4 H INR 1.1 APTT 25.2 Sodium 143 Potassium 3.6 Chloride 107 Carbon Dioxide 25.0 Anion Gap 11.0 BUN 32 H Creatinine 1.0 Estimated GFR/1.73 m2 >= 60.00 Glucose 103 Calcium 8.8 Total Bilirubin 0.6 AST 26 ALT 36 Alkaline Phosphatase 111 Troponin I < 0.05 Total Protein 7.5 Albumin 3.7 Lipase 117 COVID-19 Source 03/11/21 03:32 WBC RBC Hgb Hct MCV MCH MCHC RDW Plt Count MPV Immature Gran % Neutrophils % Lymphocytes % Monocytes % Eosinophils % Basophils % Nucleated RBC % Absolute Neutrophils Absolute Lymphocytes Absolute Monocytes Absolute Eosinophils Absolute Basophils PT INR APTT Sodium Potassium Chloride Carbon Dioxide Anion Gap BUN Creatinine Estimated GFR/1.73 m2 Glucose Calcium Total Bilirubin AST ALT Alkaline Phosphatase Troponin I Total Protein Albumin Lipase COVID-19 Source Nasal/nares Last Vital Signs Temp 36.3 C L 03/11/21 04:32 Pulse 90 03/11/21 04:32 Resp 18 03/11/21 04:32 BP 143/74 H 03/11/21 04:32 Pulse Ox 98 03/11/21 04:32 COVID-19 Screening Have you, or household traveled for leisure in last 14 days?: No Had IN PERSON contact w/suspected or confirmed C-19 person: No
[2021-03-11] MEDS: Ondansetron 4 MG/2 ML VIAL IVP (07:42)
--- NOTE | 2021-03-11 09:07 | INITIAL_ITS ---
- If Service Date Differs Date of service: 03/11/21 Time of Service: 09:07 Care Management Initial Assess REASON FOR HOSPITALIZATION:: Enteritis PAST MEDICAL HISTORY/PAST SURGICAL HISTORY:: Medical History (Updated 03/11/21 @ 03:56 by Baldo Denney DO). Abdominal aortic aneurysm (AAA) without rupture (02/27/17). 02/27/2017: 3.1 CM, pt declined following; 01/2019: US repeated and showed NO AAA --> resolved. Atrial fibrillation (01/28/13). 07/2018: [id number] SCORE =1. Pulmonary hypertension. Unspecified intellectual disabilities (01/09/12). Surgical History . Repair of inguinal hernia PREVIOUS FUNCTIONAL STATUS/SOCIAL/FAMILY SUPPORTS:: Seth lives alone in a duplex in [place], [place]. His brother used to live with him but he in March of 2018 at the age of 78. Seth had a sister who at a young age of leukemia. Both of his parents are ; his father in 1954 form a farming accident and his mother in 1969. 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 He has a garden at home which he enjoys and raises many different vegetables including tomatoes, squash, carrots and northern irish chard. Seth enjoys watching TV and reading about agriculture and gardening in his spare time. He has good friends in the area and has relatives in various parts [facility]. CURRENT FUNCTIONAL STATUS:: Seth was sitting up in his chair getting dressed when CM met with him. He stated that he is feeling fine and that he would like to leave. CM relayed the request to his provider who was intending to discharge Seth today enev brfore thr request. ADVANCE DIRECTIVES:: none on file Has patient been provided with info about the portal/API?: Yes Did the patient sign up for the portal?: No CODE STATUS:: Full Code INSURANCE COVERAGE / FINANCIAL ISSUES:: Medicare. Medicaid CURRENT HOME/COMMUNITY SERVICES/EQUIPMENT:: none PRIMARY CARE PHYSICIAN:: Lydia Nixon POTENTIAL DISCHARGE NEEDS:: Follow up with PCP and discharge plan of care PATIENT/FAMILY EDUCATION NEEDS:: Review of discharge instructions, medications, follow up plan, limitations,. Ask Me Three TRANSPORTATION:: via private vehicle with friends PLAN:: Seth will be discharged home with no new services. He will follow up with his community providers and drive himself home in his own vehicle.
[2021-03-11 09:45] LABS: Bilirubin Negative (Negative); Blood Negative (Negative); Clarity Clear (Clear); Glucose Negative (Negative); Ketones 15 mg/dL (Negative); Leukocyte Esterase Negative (Negative); Nitrite Negative (Negative); Urobilinogen 0.2 EU/dL (Up TO 0.2); pH 5.5 (5-8)
[2021-03-11 10:49] LABS: COVID-19 PCR Negative (Negative)
[2021-03-11 11:14] LABS: Abs Immature Grans 0.02 10^3/uL (0.0-0.06); Absolute Basophil Count 0.03 10^3/uL (0.0-0.2); Absolute Eosinophil Count 0.01 10^3/uL (0.0-0.7); Absolute Lymphocyte Count 0.91 10^3/uL (1.2-3.4); Absolute Monocyte Count 0.36 10^3/uL (0.1-0.8); Absolute Neutrophil Count 4.61 10^3/uL (1.2-6.7); Basophils % 0.5; Eosinophils % 0.2; HCT 41.6 % (40.0-50.0); HGB 13.9 g/dL (13.5-17.5); Immature Grans % 0.3; Lymphocytes % 15.3; MCH 32.7 pg (27.0-33.0); MCHC 33.4 % (32.0-36.0); MCV 97.9 fL (80-95); MPV 10.7 fL (8.0-11.0); Monocytes % 6.1; Neutrophils % 77.6; Nucleated RBC 0 %; Platelet Count 145 10^3/uL (130-400); RBC 4.25 10^6/uL (4.36-5.78); RDW 13.6 % (11.8-14.1); RDW-SD 49.6 fL; WBC 5.94 10^3/uL (4.4-10.8)
[2021-03-11 11:33] LABS: ALT 31 U/L (16-63); AST 21 U/L (15-37); Albumin 3.5 g/dL (3.4-5.0); Alkaline Phosphatase 102 U/L (46-116); Anion Gap 9.3 mmol/L (3-11); BUN 18 mg/dL (7-18); Bilirubin, Total 0.8 mg/dL (0.2-1.0); CO2 24.7 mmol/L (21.0-32.0); CREATININE 0.8 mg/dL (0.70-1.30); Calcium 8.1 mg/dL (8.5-10.1); Chloride 109 mmol/L (98-107); Glucose 134 mg/dL (74-106); Potassium 3.7 mmol/L (3.5-5.1); Sodium 143 mmol/L (136-145); Total Protein 7.2 g/dL (6.4-8.2)
--- NOTE | 2021-03-11 12:16 | DSE_ITS ---
Date of service: 03/11/21 Time of Service: 12:16 DS: Diagnosis Discharge Diagnosis (1) Enteritis: Status: Acute (2) Nausea: Status: Acute (3) Dehydration: Status: Acute Discharge Plan Disposition Patient Disposition: HOME Condition: Improving Discharge Details Reason For Visit: Entertitis Admit Date/Time: 03/11/21 03:52 Admit Provider: Jah Aamya Attending Provider: Jah Amaya Primary Care Provider: Lydia Nixon Hospital Course Hospital Course: his 75-year-old male emergency department late last night because of not feeling well and nausea and retching. He ate a butter sandwich and potato/egg salad yesterday for his oral intake. He began having nausea and not feeling well last night and came emergency department for evaluation. He has not been around anyone else has been ill. He lives by himself. 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 He has had both of his coronavirus vaccines. He does not recall having symptoms like this in the past. He denies any particular food intolerances. He feels a bit improved this morning and thinks he has a better appetite. He received IV fluids overnight with no further nausea or vomiting. He was tolerating a clear liquid breakfast and requested discharge. He has been hemodynamically stable with a benign abdominal exam. he declines a lunch tray, pushing for a discharge. He is medically stable and will be discharged to home with no services. I have called in a small supply of zofran for home use if needed for nausea/vomiting. he was instructed to return for new or worsening symptoms discharge discussed with Dr Federico Skinner Meds and New Rx's Prescriptions: Continued acetaminophen 500 mg tablet 1,000 mg PO BID PRN (Reason: pain) Qty: 180 RF: 3 Eliquis 5 mg tablet 5 mg PO BID Qty: 180 RF: 3 diltiazem HCl 120 mg capsule,extended release 24hr 120 mg PO DAILY Qty: 90 RF: 3 metoprolol succinate 25 mg tablet extended release 24 hr 12.5 mg PO DAILY Qty: 45 RF: 3 multivitamin Tablet 1 tab PO DAILY Qty: 90 RF: 3 ondansetron 4 mg Tablet,Disintegrating 4 mg PO Q6H PRNQty: 10 RF: 0 Discharge Instructions Instructions: Acute Nausea and Vomiting (DC) Additional Instructions: advance your diet as tolerated, drinking 6-8 glasses of water daily to stay well hydrated. use zofran if needed. make sure you are stooling regularly, take bowel medication if needed. return for new or worsening symptoms Stand Alone Forms: Nursing Discharge Form Referrals: Lydia Nixon NP [Primary Care Provider] - 03/23/21 3:45 pm Activity:: Activity as Tolerated Equipment/Supplies:: No Equipment Needed Diet:: As Tolerated Discharge Orders Discharge Orders: Discharge Order (Routine); Ordered 03/11/21 Ordered By: Caterina Quinones DS: Summary Time Spent with Patient providing and/or coordinating discharge services: Less than 30 minutes Status at Discharge Functional status at discharge: independent ambulation Overall status at discharge: patient is back to baseline Mental Status: mental status grossly normal Speech and Movement: speech and movement normal Mood: congruent mood Affect: normal affect Exam Const General: cooperative, comfortable and no acute distress Nutritional Appearance: average body habitus Orientation: alert, awake and oriented x3 HENMT Head: normal to inspection, normocephalic and atraumatic Mouth: oral mucosae normal Resp Effort & Inspection: normal respiratory effort (respirations even and unlabored) Cardio Rate: regular rate Rhythm: regular rhythm GI Inspection: normal to inspection (round) Palpation: soft, not firm, no guarding and nontender Skin General skin exam: no rashes or lesions noted Neuro General: patient alert, patient awake, patient oriented x3 and no focal motor deficits Cognition: normal cognition Speech: speech normal Gait: normal gait Motor: muscle tone normal throughout Extrem General: normal to inspection, full ROM and no pedal edema Psych Appearance: grossly normal Mental Status: mental status grossly normal Speech and Movement: speech and movement normal Mood: congruent mood Affect: normal affect Attitude: cooperative Thought Process: normal Thought Content: normal DS: Data Vitals/I&O Vitals and I&O: Vital Signs Temperature 36.3 C L 03/11/21 07:18 Temperature Source Tympanic 03/11/21 07:18 Pulse 89 03/11/21 07:18 Pulse Rhythm Irregular 03/11/21 07:45 Pulse 84 03/11/21 02:50 Respiratory Rate 18 03/11/21 07:18 Respiratory Effort Non-Labored 03/11/21 07:45 Respiratory Depth Normal 03/11/21 07:45 Respiratory Pattern Normal 03/11/21 07:45 Blood Pressure 122/77 03/11/21 07:18 Blood Pressure Position Supine 03/10/21 22:51 Pulse Oximetry 98 03/11/21 07:18 Oxygen Delivery Method Room Air 03/11/21 07:18 Oxygen Flow Rate 0 03/11/21 07:18 Pain Level 0 03/11/21 04:32 Intake & Output 03/10/21 03/11/21 03/11/21 23:59 11:59 23:59 Intake Total 1540 / 1540 Output Total 250 / 250 Balance 1290 / 1290 Weight 82 kg 81.647 kg Intake: IV 1000 / 1000 Oral 540 / 540 Output: Urine 250 / 250 Other: Urine Color Yellow Urine Appearance Clear Urine Odor Normal Voiding Methods Toilet Data Completed and Pending Labs on day of discharge: Labs from last 24 hours 03/11/21 03/11/21 03/11/21 10:50 10:50 09:40 WBC 5.94 RBC 4.25 L Hgb 13.9 Hct 41.6 MCV 97.9 H MCH 32.7 MCHC 33.4 RDW 13.6 Plt Count 145 MPV 10.7 Immature Gran % 0.3 Neutrophils % 77.6 Lymphocytes % 15.3 Monocytes % 6.1 Eosinophils % 0.2 Basophils % 0.5 Nucleated RBC % 0 Absolute Neutrophils 4.61 Absolute Lymphocytes 0.91 L Absolute Monocytes 0.36 Absolute Eosinophils 0.01 Absolute Basophils 0.03 PT INR APTT Sodium 143 Potassium 3.7 Chloride 109 H Carbon Dioxide 24.7 Anion Gap 9.3 BUN 18 D Creatinine 0.8 Estimated GFR/1.73 m2 >= 60.00 Glucose 134 H Calcium 8.1 L Total Bilirubin 0.8 AST 21 ALT 31 Alkaline Phosphatase 102 Troponin I Total Protein 7.2 Albumin 3.5 Lipase Urine Color Yellow Urine Clarity Clear Urine pH 5.5 Ur Specific [place] 1.020 Urine Protein Negative Urine Ketones 15 H Urine Blood Negative Urine Nitrite Negative Urine Bilirubin Negative Urine Urobilinogen 0.2 Ur Leukocyte Esterase Negative Urine Glucose Negative COVID-19 Source SARS-CoV-2 (PCR) 03/11/21 03/10/21 03/10/21 03:32 23:10 23:10 WBC 6.00 RBC 4.27 L Hgb 14.0 Hct 41.8 MCV 97.9 H MCH 32.8 MCHC 33.5 RDW 13.5 Plt Count 141 MPV 11.2 H Immature Gran % 0.5 Neutrophils % 59.0 Lymphocytes % 29.5 Monocytes % 7.7 Eosinophils % 2.8 Basophils % 0.5 Nucleated RBC % 0 Absolute Neutrophils 3.54 Absolute Lymphocytes 1.77 Absolute Monocytes 0.46 Absolute Eosinophils 0.17 Absolute Basophils 0.03 PT 11.4 H INR 1.1 APTT 25.2 Sodium Potassium Chloride Carbon Dioxide Anion Gap BUN Creatinine Estimated GFR/1.73 m2 Glucose Calcium Total Bilirubin AST ALT Alkaline Phosphatase Troponin I Total Protein Albumin Lipase Urine Color Urine Clarity Urine pH Ur Specific [place] Urine Protein Urine Ketones Urine Blood Urine Nitrite Urine Bilirubin Urine Urobilinogen Ur Leukocyte Esterase Urine Glucose COVID-19 Source Nasal/nares SARS-CoV-2 (PCR) Negative 03/10/21 23:10 WBC RBC Hgb Hct MCV MCH MCHC RDW Plt Count MPV Immature Gran % Neutrophils % Lymphocytes % Monocytes % Eosinophils % Basophils % Nucleated RBC % Absolute Neutrophils Absolute Lymphocytes Absolute Monocytes Absolute Eosinophils Absolute Basophils PT INR APTT Sodium 143 Potassium 3.6 Chloride 107 Carbon Dioxide 25.0 Anion Gap 11.0 BUN 32 H Creatinine 1.0 Estimated GFR/1.73 m2 >= 60.00 Glucose 103 Calcium 8.8 Total Bilirubin 0.6 AST 26 ALT 36 Alkaline Phosphatase 111 Troponin I < 0.05 Total Protein 7.5 Albumin 3.7 Lipase 117 Urine Color Urine Clarity Urine pH Ur Specific [place] Urine Protein Urine Ketones Urine Blood Urine Nitrite Urine Bilirubin Urine Urobilinogen Ur Leukocyte Esterase Urine Glucose COVID-19 Source SARS-CoV-2 (PCR) [facility] Medical History (Updated 03/11/21 @ 03:56 by Baldo Denney DO) Abdominal aortic aneurysm (AAA) without rupture (02/27/17) 02/27/2017: 3.1 CM, pt declined following; 01/2019: US repeated and showed NO AAA --> resolved Atrial fibrillation (01/28/13) 07/2018: [id number] SCORE =1 Pulmonary hypertension Unspecified intellectual disabilities (01/09/12) Surgical History Repair of inguinal hernia Family History Brother , 79 y/o, natural causes No problems noted. 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
--- NOTE | 2021-03-11 15:16 | CHAPLAIN ---
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 He said he doesn't usually sit around and he was tired of watching tv.
--- NOTE | 2021-03-11 15:48 | PDOC.CMDIS ---
- If Service Date Differs Date of service: 03/11/21 Time of Service: 15:48 LACE Index Scoring Tool - Questions: Length of Stay (in days): 1 Acuity (Admit via E.D.?): Yes E.D. Visits: 2 - Answers: Total Score: 6 Risk of Readmission: Low Risk Care Management Discharge Reason for Hospitalization: Enteritis Discharge Plan: Seth will be discharged home with no new services. He will follow up with his community providers and drive himself home in his own vehicle. Patient/Family Education Needs: Review of discharge instructions, medications, follow up plan, limitations,. Ask Me Three
== END 2021-03-11 12:28 | disposition home or self-care (01) ==
LOC: ER 03-11 04:15 → MS 03-11 04:20
PROVIDERS: Admitting Provider Family Medicine; Emergency Provider Student in an Organized Health Care Education/Training Program; PCP Nurse Practitioner Family; Visit Provider Family Medicine
DX: K52.9 Noninfective gastroenteritis and colitis, unspecified (principal); E86.0 Dehydration; I48.91 Unspecified atrial fibrillation; I27.20 Pulmonary hypertension, unspecified; Z20.822 Contact with and (suspected) exposure to COVID-19
CPT/HCPCS: 36415; 80053; 83690; 87635; 93005; 96361; 96374; 96375; 96376; 99285; 74177; 81003; 84484; 85025; 85610; 85730; 93010; 99217; 99222; 99235; G0378; J2405; J2765; J3490

== ENCOUNTER 2021-09-25 23:45 | Emergency (ER) | payer MEDICARE, MEDICAID, SELFPAY ==
[2021-09-25 23:51] VITALS: BP 148/101; PULSE 70; RESP 18; TEMP 36.4; O2SAT 95
--- NOTE | 2021-09-26 00:06 | ED.GENADUL_ITS ---
Discharge Plan Disposition Patient Disposition: HOME Condition: Stable Discharge Details Clinical Impression: Nausea Primary Care Provider: Lydia Nixon ED Provider: Tee Cleveland Home Meds and New Rx's Prescriptions: New ondansetron 4 mg tablet,disintegrating 4 mg PO Q8H PRN (Reason: nausea and vomiting) Qty: 30 RF: 0 Continued acetaminophen 500 mg tablet 1,000 mg PO BID PRN (Reason: pain) Qty: 180 RF: 3 Eliquis 5 mg tablet 5 mg PO BID Qty: 180 RF: 3 diltiazem HCl 120 mg capsule,extended release 24hr 120 mg PO DAILY Qty: 90 RF: 3 metoprolol succinate 25 mg tablet extended release 24 hr 12.5 mg PO DAILY Qty: 45 RF: 3 multivitamin Tablet 1 tab PO DAILY Qty: 90 RF: 3 Discharge Instructions Instructions: Acute Nausea and Vomiting (ED) Additional Instructions: Follow up with your primary care provider this week if you feel more ill, have abdominal or chest pain or persistent vomit return to the emergency department Medical Decision Making 76 yo male with hx of afib comes in after he started to feel queezy had an episode of vomit earlier tonight. He states he had finished dinner then an hour or so later started to have nausea and then had an episode of vomit. Denies every having any chest pain, abdominal pain, and no recent travel or fevers. He states he feels better now. He is pleasant and laughing intermittently on exam. He has clear lungs, soft abdomen with no tenderness anywhere in his abdomen. Unclear etiology for his brief episode of nausea. Given on chest pain or dyspnea and lasted a few minutes do not feel workup for acs indicated. No abdominal tenderness and never had pain so do not feel imaging or labs indicated to evaluate for etiologies such as sbo or pancreatitis. will po challenge here and reasssess. pt asymptomatic requesting d/c, given no symptoms here and reassuring exam and vitals feel he is stable for d/c. Advised to follow up with his pcp and return precautions given Differential Diagnosis Differential Diagnosis: gastroenteritis, gastritis, food related illness Medical Records Medical records reviewed: Yes I reviewed the patient's medical records. HPI General Mode of arrival: ambulatory . Date/Time Provider Initiated Documentation: 09/26/21 00:00 . Limitations to Documentation: no limitations . Information obtained by: patient . History of Present Illness 76 year old M presents to the emergency department with the chief complaint of nausea, described as moderate, Patient started experiencing this hour(s) (3) and it has been now resolved. No relieving factors improve symptom(s), No exace rbating factors reported . Patient notes no other symptoms.. Patient did receive the following treatments prior to arrival, none Related Data Home Medications Medication Instructions Recorded Confirmed acetaminophen 500 mg tablet 1,000 mg PO BID PRN #180 tab 08/12/20 09/25/21 apixaban 5 mg tablet 5 mg PO BID #180 tab-cap 03/23/21 09/25/21 diltiazem HCl 120 mg 120 mg PO DAILY #90 tab-cap 07/28/21 09/25/21 capsule,extended release 24 hr metoprolol succinate 25 mg 12.5 mg PO DAILY #45 tab-cap 07/28/21 09/25/21 tablet,extended release 24 hr multivitamin 1 tab PO DAILY #90 tab 07/28/21 09/25/21 ondansetron 4 mg PO Q8H PRN #30 tab 09/26/21 Previous Rx's Medication Instructions Recorded acetaminophen 500 mg tablet 1,000 mg PO BID PRN #180 tab 08/12/20 apixaban 5 mg tablet 5 mg PO BID #180 tab-cap 03/23/21 diltiazem HCl 120 mg 120 mg PO DAILY #90 tab-cap 07/28/21 capsule,extended release 24 hr metoprolol succinate 25 mg 12.5 mg PO DAILY #45 tab-cap 07/28/21 tablet,extended release 24 hr multivitamin 1 tab PO DAILY #90 tab 07/28/21 ondansetron 4 mg PO Q8H PRN #30 tab 09/26/21 Allergies Allergy/AdvReac Type Severity Reaction Status Date / Time No Known Allergies Allergy Verified 07/28/21 08:42 General Stated Complaint: Nausea/Vomit/Diar VEDA: 3 Review of Systems All systems reviewed & are unremarkable except as noted in HPI and below Constitutional Constitutional: Denies chills, Denies fever(s) and Denies weakness Cardiovascular Cardiovascular: Denies chest pain and Denies dyspnea Respiratory Respiratory: Denies cough and Denies dyspnea Gastrointestinal Gastrointestinal: Denies nausea and Denies vomiting Genitourinary Genitourinary: Denies dysuria Musculoskeletal Musculoskeletal: Denies joint swelling Integumentary/Breasts Skin/Breast: Denies rash Neurologic Neurologic: Denies weakness Psychiatric Psychiatric: Denies depression PFSH All Active Problems (Updated 09/26/21 @ 00:46 by Tee Cleveland MD) Nausea (Acute) Pulmonary hypertension (Chronic) Nonsustained ventricular tachycardia (Acute) Weight loss (Acute) unintentional? 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 Pets and animals: No What type of physical activity do you participate in: walking Frequency: daily Seatbelt use: always Do you feel safe at home: Yes Do you feel safe in your relationship?: Yes Exam Const General: no acute distress Orientation: alert HENMT Head: normal to inspection Ears: external ears normal General nose exam: external nose normal Mouth: moist mucous membranes Eyes General: appearance normal, both eyes and all related structures Neck Neck: normal visual inspection Resp Effort & Inspection: normal respiratory effort and able to speak in complete sentences Cardio Rate: regular rate GI Palpation: soft and nontender Skin General skin exam: no rashes or lesions noted Neuro General: patient alert and patient oriented x3 Extrem General: normal to inspection Psych Mental Status: mental status grossly normal Course Vital Signs Vital signs: Vital Signs Temperature 36.4 C L 09/25/21 23:51 Pulse 70 09/25/21 23:51 Respiratory Rate 18 09/25/21 23:51 Blood Pressure 148/101 H 09/25/21 23:51 Pulse Oximetry 95 09/25/21 23:51 Temperature 36.4 C L 09/25/21 23:51 Temperature Source Temporal Artery Scan 09/25/21 23:51 Pulse 70 09/25/21 23:51 Respiratory Rate 18 09/25/21 23:51 Respiratory Effort 09/25/21 23:53 Blood Pressure 148/101 H 09/25/21 23:51 Blood Pressure Position Supine 09/25/21 23:51 Pulse Oximetry 95 09/25/21 23:51 Oxygen Delivery Method Room Air 09/25/21 23:51 Oxygen Flow Rate 0 09/25/21 23:51 Pain Level 0 09/25/21 23:51
[2021-09-26] MEDS: Ondansetron O.D.T. 4 MG TABEF PO (00:09)
[2021-09-26] MEDS: Ondansetron O.D.T. 4 MG TABEF, 3 TABS/BTL PO (00:59)
== END 2021-09-26 00:58 | disposition home or self-care (01) ==
PROVIDERS: Emergency Provider Emergency Medicine; PCP Nurse Practitioner Family
DX: R11.2 Nausea with vomiting, unspecified (principal)
CPT/HCPCS: 99283

== ENCOUNTER 2022-03-25 13:25 | Emergency (ER) | payer MEDICARE, MEDICAID, SELFPAY ==
[2022-03-25 13:30] VITALS: BP 153/76; PULSE 80; RESP 16; TEMP 36.7; O2SAT 99
--- NOTE | 2022-03-25 13:57 | W.ED.GENAD ---
Discharge Plan Disposition Patient Disposition: HOME Condition: Improving Discharge Details Clinical Impression: Laceration of left lower leg Primary Care Provider: Lydia Nixon ED Provider: Miguel Ventura Home Meds and New Rx's Prescriptions: Continued acetaminophen 500 mg tablet 1,000 mg PO BID PRN (Reason: pain) Qty: 180 3RF Eliquis 5 mg tablet 5 mg PO BID Qty: 180 3RF betamethasone valerate 0.1 % ointment 1 applic topical QD-BID PRN (Reason: High Potency (Group 3) topical steroid) Qty: 45 0RF diltiazem HCl 120 mg capsule,extended release 24hr 120 mg PO DAILY Qty: 90 3RF Label Comments: has not taken this medication - states he has not picked it up from pharmacy - [facility] on 05/25/19. metoprolol succinate 25 mg tablet extended release 24 hr 12.5 mg PO DAILY Qty: 45 3RF multivitamin Tablet 1 tab PO DAILY Qty: 90 3RF Discharge Instructions Instructions: Laceration (ED) Additional Instructions: Tetanus status updated today. The wound was appropriately cleaned and dressed with a dressing that will help with the small amount of bleeding. You may change the outer dressing daily but the inner dressing that is adhered to your skin will come off on its own in approximately 7 days. Please watch for new or worsening symptoms and return to the ER for any concerns. I do recommend contacting your primary care provider on Sunday to discuss your ER visit and need for outpatient reevaluation. Medical Decision Making 76-year-old gentleman, on Eliquis, tetanus status not up-to-date, presents for a bleeding wound on his left lower extremity that he sustained around 7 AM this morning while taking the garbage out. Plan is to update tetanus status. Laceration is well approximated, does not require closure but given his Eliquis and concern for minimal bleeding, will thoroughly clean and then apply a Surgicel dressing. Patient tolerated this well Standard discharge and return precautions were provided. Patient understands, is agreeable to this plan, and has no additional questions or concerns upon discharge. This documentation was generated using [employer] system, please disregard any oddities of phrase or misspellings. Medical Records Medical records reviewed: Yes I reviewed the patient's medical records. HPI General Mode of arrival: ambulatory. Date/Time Provider Initiated Documentation: 03/25/22 13:40. Limitations to Documentation: no limitations. Information obtained by: patient. History of Present Illness 76 year old M presents to the emergency department with the chief complaint of L lower leg lac, described as mild, with intensity rated at 1. Quality is described as aching, and is localized to the left and lower extremity. Patient reports no radiation. Patient started experiencing this hour(s) (5.5) and it has been constant. No relieving factors improve symptom(s), No exacerbating factors reported . Patient notes other (Mild bleeding, on Eliquis). Patient did receive the following treatments prior to arrival, none Related Data Home Medications Medication Instructions Recorded Confirmed acetaminophen 500 mg tablet 1,000 mg PO BID PRN pain #180 tabs 08/12/20 03/25/22 apixaban 5 mg tablet (Eliquis) 5 mg PO BID nonvalvular atrial 03/23/21 03/25/22 fibrillation #180 tab-caps diltiazem HCl 120 mg 120 mg PO DAILY AFib #90 tab-caps 07/28/21 03/25/22 capsule,extended release 24 hr metoprolol succinate 25 mg 12.5 mg PO DAILY #45 tab-caps 07/28/21 03/25/22 tablet,extended release 24 hr multivitamin 1 tab PO DAILY #90 tabs 07/28/21 03/25/22 betamethasone valerate 0.1 % 1 applic topical QD-BID PRN High 02/10/22 03/25/22 topical ointment Potency (Group 3) topical steroid #45 grams Previous Rx's Medication Instructions Recorded acetaminophen 500 mg tablet 1,000 mg PO BID PRN pain #180 tabs 08/12/20 apixaban 5 mg tablet (Eliquis) 5 mg PO BID nonvalvular atrial 03/23/21 fibrillation #180 tab-caps diltiazem HCl 120 mg 120 mg PO DAILY AFib #90 tab-caps 07/28/21 capsule,extended release 24 hr metoprolol succinate 25 mg 12.5 mg PO DAILY #45 tab-caps 07/28/21 tablet,extended release 24 hr multivitamin 1 tab PO DAILY #90 tabs 07/28/21 betamethasone valerate 0.1 % 1 applic topical QD-BID PRN High 02/10/22 topical ointment Potency (Group 3) topical steroid #45 grams Allergies Allergy/AdvReac Type Severity Reaction Status Date / Time No Known Allergies Allergy Verified 03/25/22 13:34 General Stated Complaint: Laceration VEDA: 3 Review of Systems Constitutional Constitutional: Denies fever(s) and Denies weakness Musculoskeletal Musculoskeletal: Denies arthralgias, Denies numbness and Denies tingling Integumentary/Breasts Skin/Breast: Denies rash Neurologic Neurologic: Denies numbness, Denies tingling and Denies weakness Hematologic/Lymphatic Hematologic/Lymphatic: Reports easy bleeding and Reports easy bruising PFSH All Active Problems (Updated 03/25/22 @ 14:04 by HANS Garcia) Laceration of left lower leg (Acute) Psoriasiform dermatitis (Acute) Psoriasis (Chronic ~11/2021) [facility] 12/2021; skin bx done most c/w psoriasis; PRN topical steroid recommended Pulmonary hypertension (Chronic) Nonsustained ventricular tachycardia (Acute) Weight loss (Acute) unintentional? 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 Pets and animals: No What type of physical activity do you participate in: walking Frequency: daily Seatbelt use: always Do you feel safe at home: Yes Do you feel safe in your relationship?: Yes Exam Const General: cooperative, healthy appearing, comfortable and no acute distress Orientation: alert and awake [facility] Head: normal to inspection, normocephalic and atraumatic Eyes Conjunctivae: conjunctivae normal Neck Neck: normal visual inspection, full ROM, trachea midline and supple Resp Effort & Inspection: normal respiratory effort and able to speak in complete sentences Skin General skin exam: no rashes or lesions noted Neuro General: patient alert, patient awake, moves all extremities and no focal motor deficits Cognition: normal cognition Speech: speech normal Gait: normal gait Motor: muscle tone normal throughout Sensory Exam: no sensory deficits noted Extrem General: full ROM and capillary refill normal Upper/lower leg/hip images: 1. Abrasion 2. 1 cm well approximated laceration. No tenderness, erythema, warmth, foreign body. There is a mild ooze of blood, no arterial bleed Psych Appearance: grossly normal Mental Status: mental status grossly normal Course Vital Signs Vital signs: Vital Signs Temperature 36.7 C 03/25/22 13:30 Pulse 80 03/25/22 13:30 Respiratory Rate 16 03/25/22 13:30 Blood Pressure 153/76 H 03/25/22 13:30 Pulse Oximetry 99 03/25/22 13:30 Temperature 36.7 C 03/25/22 13:30 Temperature Source Temporal Artery Scan 03/25/22 13:30 Pulse 80 03/25/22 13:30 Respiratory Rate 16 03/25/22 13:30 Respiratory Effort 03/25/22 13:30 Blood Pressure 153/76 H 03/25/22 13:30 Blood Pressure Position Sitting 03/25/22 13:30 Pulse Oximetry 99 03/25/22 13:30 Oxygen Delivery Method Room Air 03/25/22 13:30 Oxygen Flow Rate 0 03/25/22 13:30 Pain Level 0 03/25/22 13:36
== END 2022-03-25 14:21 | disposition home or self-care (01) ==
PROVIDERS: Emergency Provider Physician Assistant; PCP Nurse Practitioner Family
DX: S81.812A Laceration without foreign body, left lower leg, initial encounter (principal); Z23 Encounter for immunization; Z87.891 Personal history of nicotine dependence; W26.9XXA Contact with unspecified sharp object(s), initial encounter; Y93.89 Activity, other specified; Z79.01 Long term (current) use of anticoagulants
CPT/HCPCS: 90471; 99281; 99282

== ENCOUNTER 2022-08-04 02:17 | Outpatient (CLI) | payer MEDICARE, SELFPAY ==
--- OUTSIDE RECORDS SUMMARY | 2022-08-04 02:19 | XMS_ITS | Encounter Summary ---
:1945 Author Organization [facility] [place] [address] Care Team Providers Name Role Phone Ritu Sharp MD Primary Care Provider Reason for Visit Reason Comments Dermatitis Encounter Details Date Type Department Care Team Description 12/30/2021 Office Visit Dermatology at [facility] Ainsley Sanz N eoplasm of uncertain behavior of skin; Jessica SMART Dermatitis [address] [place] [address] [facility][1]-DERMATOLOGY [place], [place] [address] Social History Tobacco Use Types Packs/Day Years Used Date Never Assessed Sex Assigned at Date Recorded Not on file documented as of this encounter Patient Instructions Patient InstructionsAndie Cooper LPN - 12/30/2021 11:32 AM EDT -- Biopsy taken today, will call with results of biopsy in 1-2 weeks -- Recommend wearing daily compression stockings from the pharmacy -- Continue Rx: Betamethasone ointment Apply to the rash twice daily for 2 weeks take 1 week off andrepeat as needed (refill sent today) documented in this encounter Progress Notes Ainsley Sanz MD - 12/30/2021 11:00 AM EDT Images from the original note were not included. DEPARTMENT OF DERMATOLOGY Medical Dermatology Clinic Provider: Ainsley Sanz MD Patient's preferred name [place] Preferred contact method for results [x]Phone []myD-H []Letter Detailed phone message OK? Are there any other people with whom we may discuss your care? Past Medical History Date, location, treatment Melanoma N Dysplastic nevi N SCC N BCC N AKs N UV Exposure & Protection N Other relevant past medical history N Family History Details Melanoma N NMSC N Other relevant family history N Social History Kristal Nixon is PCP History of Present Illness: Seth Jones is a 76 y.o. Patient is new and self- referred to the clinic for the following: -Rash on the bilateral legs, present for the last three months, when it is at its worst it is itchy,using betamethasone ointment since Sunday. Swelling has gone down in the last couple of days but does endorse history of leg edema. Medications: Reviewed in eD-H Allergies: Reviewed in eD-H Skin Examination: Focused skin examination of the bilateral lower legs was normal with the exception of the findings below. Assessment/Plan Dermatitis - 2+ edema to the right knee, erythematous papules coalescing into plaques on bilateral shins. -- Recommend following up with PCP regarding pedal edema -- Recommend wearing daily compression stockings from the pharmacy and leg elevation -- Continue Rx: Betamethasone ointment Apply to the rash twice daily for 2 weeks take 1 week off andrepeat as needed (refill sent today) Neoplasm of the Skin DDx: Stasis versus dermatitis versus Eczema versus ENV, erythematous papules coalescing into plaqueson bilateral shins Procedure: Skin biopsy by shave technique Time of procedure: 1130 Location: Right knee Discussed indications for procedure and expectations including risks and benefits. Verbal consent obtained. Skin prep with alcohol. Local anesthesia with 1% xylocaine, 1/100,000 epinephrine. A sample of the lesion was removed by shave technique to the level of the dermis and submitted to Pathology. Hem ostasis obtained (AlCl and/or electrocautery). There were no complications; the pt. tolerated the procedure well. The wound was dressed. Post-procedure expectations, wound care and activity restrictions were reviewed. Follow-up based on pathology results. Figure 1 Photo(s) taken and charted with patient's verbal consent. Other: ??? N/A RTC: Pending pathology []Note routed to medical secretary []Recall placed in scheduling system []Appointment scheduled at checkout Scribe attestation: Andie Cooper LPN has performed the documentation for this encounter in the presence of and acting as a scribe for Ainsley Snaz MD. I performed the above scribed service and agree with the accuracy of the documentation in this encounter. Reviewed and signed by: Ainsley Sanz MD Dermatology [facility] Ainsley Sanz MD - 12/30/2021 11:00 AM EDT Right knee, psoriasis. Continue betamethasone BID x 2-3 weeks or until clear. Called patient to discuss and recommended above treatment. Discussed recurrent nature of psoriasis and to restart when the rash recurs. Offered a follow up visit but pt declines as he will be working for the next 8 months and he will call if he needs to followup. documented in this encounter Plan of Treatment Not on filedocumented as of this encounter Procedures Procedure Name Priority Date/Time Associated Diagnosis Comme nts SURGICAL PATHOLOGY Routine 12/30/2021 11:35 AM Re sults for this REPORT EDT procedure are i n the results section. SPECIMEN TO Routine 12/30/2021 11:35 AM Neoplasm of Results for this PATHOLOGY EDT uncertain behavior procedure are in of skin the results section. documented in this encounter Results Surgical Pathology Report (12/30/2021 11:35 AM EDT) Component Value Ref Test Analysis Performed At [facility] Method Time Signature Surgical [id number] ? Location: [facility] Pathology [place] Report The signing pathologist has (i) examined the relevant preparation(s) for the [facility] specimen(s) and (ii) rendered or confirmed the diagnosis(es) . [facility] . ?Surgic al Pathology DIAGNOSIS Right knee, skin shave biopsy - Psoriasiform dermatitis with confluent ?parakera tosis (see discussion) Electronically signed by: ?Paul SMART, PhD, Mary Verified: ??01/04/2022 9:05 ?? Dermatopathologist Performed at: ??[place], [facility], [place], [place] DISCUSSION The biopsy shows psoriasifor m acanthosis with confluent parakeratosis containing focal serum and rare neutrophils. The granular cell l derrick is decreased. The suprapapillary plates are t hinned associated with ectatic tortuous capillaries in the dermal papillae and margareth ma. There is a mild superficial perivascular lymphocytic infiltrate mixed with plasm a cells and rare eosinophils. ?No fungi are seen in PAS- reacted sections. The findings are most consis tent with psoriasis although the histologic differential diagnosis could include other psoriasiform dermatitides s uch as a subacute spongiotic dermatitis but is less favored. Clinicopat hologic correlation is recommended. ADDITIONAL STUDIES Special Stains: Formalin-fixed, paraffin-embedded tissue sections are studied with appropriate positive controls. Block ? Special Stain ? Result (Positive/Ne gative) A1 ? PAS/F ?Negative for fun gi SPECIMEN(S) SUBMITTED A - Right knee, skin shave biopsy (1) CLINICAL INFORMATION Erythematous papules coalesc ing into plaques; stasis vs dermatitis vs eczema vs ENV SPECIMEN PROCESSING A - Labeled/Fixative: Right knee, formalin. Quantity/Size: ??Single, 0.7 x 0.3 x 0.1 cm. Tissue Description: Shave of pink-white skin. Sections/Processing: Trisected and entirely submitted in 1 cassette labeled A1. ??sns Specimen (Source) Anatomical Collection Method Collection Time Re ceived Time Location / / Volume Laterality 12/30/2021 11:35 AM EDT Ainsley Sanz MD PATHOLOGY/CYTOLOGY ORDERABLE S Performing Organization Address City/State/[place] [address] Specimen to Pathology (12/30/2021 11:35 AM EDT) Specimen Anatomical Collection Method Collection Time Receive d Time (Source) Location / / Volume Laterality AP Specimen 12/30/2021 11:35 12/30/2021 AM EDT 11:[address] [facility] - 12/30/2021 11:35 AM EDT Specimen requisition ordered. ??Separate Pathology report to follow Ainsley Sanz MD PATHOLOGY/CYTOLOGY ORDERABLE S Performing Organization Address City/State/[place] [address] documented in this encounter Visit Diagnoses Diagnosis Neoplasm of uncertain behavior of skin Dermatitis Contact dermatitis and other eczema, due to unspecified cause documented in this encounter Care Teams Automatic Beading Lathe Operator Relationship Specialty Start Date End Date Ritu Sharp MD PCP - General 08/23/10 [facility] [place] [address] [place] [address] documented as of this encounter
--- OUTSIDE RECORDS SUMMARY | 2022-08-04 02:19 | XMS_ITS | Clinical Summary ---
:1945 Author Organization [facility] [place] [address] Care Team Providers Name Role Phone Ritu Sharp MD Primary Care Provider Allergies No known active allergies Medications Medication Sig Dispensed Refills Start Date End Date Status betamethasone Apply to the 45 g 2 12/30/2021 Ac tive dipropionate (Diprolene) rash twice daily 0.05 % for 2 weeks take OintmentIndications: 1 week off and Dermatitis repeat as needed Active Problems No known active problems Social History Tobacco Use Types Packs/Day Years Used Date Never Assessed Sex Assigned at Date Recorded Not on file Plan of Treatment Health Maintenance Due Date Last Done Comments Covid-19 Vaccine (#1) 1945 Hepatitis C Screening 1963 Tdap adult 1965 Tetanus vaccine 1965 Zoster vaccine (1 of 2) 1996 Advance Directive 2001 Pneumoccocal Vaccine: 65+ (1 - PCV) 2011 Influenza (Flu) vaccine (1 of 1 - Influenza standard 06/01/2022 series) Insurance Payer Benefit Plan / Subscriber ID Effective Dates Phone Addre ss Type Group MEDICARE MEDICARE PART [id number] 2021-Presen [phone] [id number] [place] [id number] [place] [id number] 2021-Presen [phone] [address] [place] [address] Care Teams Network Operations Center Technician Relationship Specialty Start Date End Date Ritu Sharp MD PCP - General 08/23/[address] [place], [place] [id number]
[2022-08-04 08:16] LABS: Abs Immature Grans 0.03 10^3/uL (0.0-0.06); Absolute Basophil Count 0.05 10^3/uL (0.0-0.2); Absolute Eosinophil Count 0.09 10^3/uL (0.0-0.7); Absolute Monocyte Count 0.57 10^3/uL (0.1-0.8); Absolute Neutrophil Count 4.27 10^3/uL (1.2-6.7); Basophils % 0.7; Eosinophils % 1.3; HCT 45.6 % (40.0-50.0); HGB 14.8 g/dL (13.5-17.5); Immature Grans % 0.4; Lymphocytes % 26.4; MCH 32.5 pg (27.0-33.0); MCHC 32.5 % (32.0-36.0); MCV 100 fL (80-95); MPV 11.3 fL (8.0-11.0); Monocytes % 8.4; Neutrophils % 62.8; Platelet Count 158 10^3/uL (130-400); RBC 4.56 10^6/uL (4.36-5.78); RDW 14.1 % (11.8-14.1); RDW-SD 51.5 fL; WBC 6.81 10^3/uL (4.4-10.8)
[2022-08-04 08:37] LABS: ALT 37 U/L (16-63); AST 27 U/L (15-37); Albumin 3.9 g/dL (3.4-5.0); Alkaline Phosphatase 93 U/L (46-116); Anion Gap 8.4 mmol/L (3-11); BUN 25 mg/dL (7-18); Bilirubin, Total 0.8 mg/dL (0.2-1.0); CO2 28.6 mmol/L (21.0-32.0); CREATININE 1.1 mg/dL (0.70-1.30); Calcium 8.9 mg/dL (8.5-10.1); Chloride 108 mmol/L (98-107); Estimated GFR 69.57 (mL/min/1.73m2); Glucose 94 mg/dL (74-106); Potassium 4.2 mmol/L (3.5-5.1); Sodium 145 mmol/L (136-145)
[2022-08-07 10:09] LABS: Hepatitis C Ab w Rflx HCV PCR Negative (Negative)
== END 2022-08-04 02:18 | disposition home or self-care (01) ==
LOC: LBO 02:18
PROVIDERS: PCP Nurse Practitioner Family; Visit Provider Nurse Practitioner Family
DX: I48.91 Unspecified atrial fibrillation (principal); Z79.01 Long term (current) use of anticoagulants; Z79.899 Other long term (current) drug therapy; Z11.59 Encounter for screening for other viral diseases; I27.20 Pulmonary hypertension, unspecified
CPT/HCPCS: 36415; 80053; 86803; 85025

== ENCOUNTER 2022-08-07 09:44 | Emergency (ER) | payer MEDICARE, MEDICAID, SELFPAY ==
[2022-08-07 09:45] VITALS: BP 156/87; PULSE 98; RESP 18; TEMP 36.8; O2SAT 97
--- NOTE | 2022-08-07 09:55 | DI.CT_ITS ---
Exam(s) CT HEAD CERVICAL SPINE WO EXAM: CT HEAD CERVICAL SPINE WO CLINICAL HISTORY: trauma, head injury. TECHNIQUE: Imaging Protocol: Axial computed tomography images with coronal and sagittal reformatted images were created and reviewed COMPARISON: CT CT BRAIN NECK CTA from 05/25/2019 FINDINGS: BRAIN: There is mild density on both sides the forehead. There are no skull fractures nor fluid in the visualized paranasal sinuses. There is no evidence of intracranial hemorrhage, mass effect, or shift of midline structures. There are no extra-axial fluid collections. The ventricles are not enlarged or shifted and there is no blo od within the ventricular system nor within the basal cisterns. Vascular calcifications noted in both vertebral arteries at the skull base as well as within the inte rnal carotid arteries. CERVICAL SPINE: There is no evidence of acute fracture.. No significant prevertebral soft tissue swelling. Multilevel disc space narrowing at C 3-4, C5-6, and C6-7 levels. Mild retrolisthesis of C3 upon C4. Multilevel facet degenerative changes. There is no significant facet joint malalignment. No significant osseous lesions evident. IMPRESSION: No acute intracranial findings on this noninfused CT scan of the brain. No evidence of cervical spine fracture, malalignment, nor acute compromise of the cervical spinal can al. RADIATION DOSE DELIVERED: 1,312.8mGy.cm Total DLP DATA REPOSITORY: All CT scans at this facility are submitted to the National Radiology Data Registry (NRDR) Dose Index Registry (DIR) with the [employer] (A[employer]). RADIATION OPTIMIZATION: All CT scans at this facility use at least one of these dose optimization te chniques: automated exposure control; mA and/or kV adjustment per patient size (includes targeted exa ms where dose is matched to clinical indication); or iterative reconstruction.
[2022-08-07 11:29] LABS: Abs Immature Grans 0.05 10^3/uL (0.0-0.06); Absolute Basophil Count 0.06 10^3/uL (0.0-0.2); Absolute Eosinophil Count 0.06 10^3/uL (0.0-0.7); Absolute Monocyte Count 0.61 10^3/uL (0.1-0.8); Basophils % 0.5; Eosinophils % 0.5; HCT 44.2 % (40.0-50.0); HGB 14.5 g/dL (13.5-17.5); Immature Grans % 0.4; MCH 32.7 pg (27.0-33.0); MCHC 32.8 % (32.0-36.0); MCV 100 fL (80-95); Neutrophils % 84.6; Platelet Count 153 10^3/uL (130-400); RBC 4.43 10^6/uL (4.36-5.78); RDW 14.2 % (11.8-14.1); RDW-SD 52.6 fL; WBC 12.17 10^3/uL (4.4-10.8)
[2022-08-07 11:38] LABS: INR 1.2 (0.9-1.1); Prothrombin Time 11.6 sec (9.3-11.0)
[2022-08-07 11:43] LABS: ALT 35 U/L (16-63); AST 27 U/L (15-37); Albumin 3.8 g/dL (3.4-5.0); Alkaline Phosphatase 93 U/L (46-116); Anion Gap 8.9 mmol/L (3-11); BUN 31 mg/dL (7-18); Bilirubin, Total 0.6 mg/dL (0.2-1.0); CO2 27.1 mmol/L (21.0-32.0); Calcium 8.6 mg/dL (8.5-10.1); Chloride 111 mmol/L (98-107); Glucose 112 mg/dL (74-106); Potassium 4.3 mmol/L (3.5-5.1); Sodium 147 mmol/L (136-145); Total Protein 7.5 g/dL (6.4-8.2)
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
== END 2022-08-07 13:03 | disposition home or self-care (01) ==
PROVIDERS: Emergency Provider Student in an Organized Health Care Education/Training Program; PCP Nurse Practitioner Family
DX: S01.01XA Laceration without foreign body of scalp, initial encounter (principal); E87.0 Hyperosmolality and hypernatremia; I48.91 Unspecified atrial fibrillation; Z79.01 Long term (current) use of anticoagulants; V89.2XXA Person injured in unspecified motor-vehicle accident, traffic, initial encounter; Y92.410 Unspecified street and highway as the place of occurrence of the external cause
CPT/HCPCS: 12001; 80053; 99284; 70450; 72125; 85025; 85610; 99282

== ENCOUNTER 2022-08-09 07:32 | Emergency (ER) | payer MEDICARE, MEDICAID, SELFPAY ==
[2022-08-09 07:45] VITALS: BP 163/78; PULSE 100; RESP 18; TEMP 36.8; O2SAT 99
[2022-08-09 08:03] VITALS: RESP 18
[2022-08-09 08:07] LABS: Abs Immature Grans 0.03 10^3/uL (0.0-0.06); Absolute Basophil Count 0.03 10^3/uL (0.0-0.2); Absolute Eosinophil Count 0.02 10^3/uL (0.0-0.7); Absolute Lymphocyte Count 1.26 10^3/uL (1.2-3.4); Absolute Monocyte Count 0.53 10^3/uL (0.1-0.8); Absolute Neutrophil Count 5.05 10^3/uL (1.2-6.7); Basophils % 0.4; Eosinophils % 0.3; HCT 41.9 % (40.0-50.0); HGB 13.9 g/dL (13.5-17.5); Immature Grans % 0.4; Lymphocytes % 18.2; MCH 33.1 pg (27.0-33.0); MCHC 33.2 % (32.0-36.0); MCV 100 fL (80-95); MPV 10.8 fL (8.0-11.0); Monocytes % 7.7; Platelet Count 144 10^3/uL (130-400); RDW 14.3 % (11.8-14.1); RDW-SD 52.7 fL; WBC 6.92 10^3/uL (4.4-10.8)
[2022-08-09 08:23] LABS: ALT 33 U/L (16-63); AST 20 U/L (15-37); Albumin 3.7 g/dL (3.4-5.0); Alkaline Phosphatase 92 U/L (46-116); Anion Gap 6.5 mmol/L (3-11); BUN 23 mg/dL (7-18); Bilirubin, Total 0.9 mg/dL (0.2-1.0); CO2 28.5 mmol/L (21.0-32.0); CREATININE 1.1 mg/dL (0.70-1.30); Calcium 8.7 mg/dL (8.5-10.1); Chloride 109 mmol/L (98-107); Estimated GFR 69.57 (mL/min/1.73m2); Glucose 128 mg/dL (74-106); Sodium 144 mmol/L (136-145); Total Protein 7.8 g/dL (6.4-8.2)
--- NOTE | 2022-08-09 08:29 | DI.CT_ITS ---
Exam(s) CT ORBITS WO EXAM: CT ORBITS WO CLINICAL HISTORY: trauma, b/l orbital ecchymoses. TECHNIQUE: Imaging Protocol: Axial computed tomography images with coronal and sagittal reformatted images were created and reviewed COMPARISON: CT CT HEAD CERVICAL SPINE WO from 08/07/2022 FINDINGS: CT Face: Facial Bones: No definite fracture is noted in facial bones. Sinuses and Mastoids: Unremarkable. Globes, extraocular muscles, optic nerves and retrobulbar fat: Normal. Upper aerodigestive tract: Normal. Mandible and bilateral temporomandibular joints: Normal. Soft tissues: There is soft tissue swelling in the periorbital region and cheeks bilaterally, left gr eater than right. There is a soft tissue hematoma overlying the frontal bone. IMPRESSION: 1. No acute facial fracture. 2. Soft tissue swelling of the face left greater than right. 3. Subcutaneous hematoma overlying the frontal bones. 4. Findings were discussed with Dr. Aviva Culp at 9:15 a.m. on 08/09/2022. RADIATION DOSE DELIVERED: 297.01mGy.cm Total DLP 297.01mGy.cm Total DLP DATA REPOSITORY: All CT scans at this facility are submitted to the National Radiology Data Registry (NRDR) Dose Index Registry (DIR) with the [employer] (ACR). RADIATION OPTIMIZATION: All CT scans at this facility use at least one of these dose optimization te chniques: automated exposure control; mA and/or kV adjustment per patient size (includes targeted exa ms where dose is matched to clinical indication); or iterative reconstruction.
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
[2022-08-09 08:53] LABS: INR 1.1 (0.9-1.1)
== END 2022-08-09 14:17 | disposition other institution (70) ==
PROVIDERS: Emergency Provider Student in an Organized Health Care Education/Training Program; PCP Nurse Practitioner Family
DX: S01.01XD Laceration without foreign body of scalp, subsequent encounter (principal); S00.11XD Contusion of right eyelid and periocular area, subsequent encounter; S00.12XD Contusion of left eyelid and periocular area, subsequent encounter; H11.422 Conjunctival edema, left eye; V89.2XXD Person injured in unspecified motor-vehicle accident, traffic, subsequent encounter; I48.91 Unspecified atrial fibrillation
CPT/HCPCS: 36415; 80053; 99284; 70480; 85025; 85610

== ENCOUNTER 2023-01-20 10:19 | Emergency (ER) | payer MEDICARE, MEDICAID, SELFPAY ==
[2023-01-20 10:21] VITALS: BP 132/88; PULSE 74; RESP 18; TEMP 36.8
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
[2023-01-20 11:06] VITALS: BP 132/88; PULSE 74; RESP 18; TEMP 36.8
== END 2023-01-20 11:13 | disposition home or self-care (01) ==
PROVIDERS: Emergency Provider Physician Assistant; PCP Nurse Practitioner Family
DX: L98.9 Disorder of the skin and subcutaneous tissue, unspecified (principal)
CPT/HCPCS: 99282; 99283

== ENCOUNTER 2023-02-28 06:59 | Emergency (ER) | payer MEDICARE, MEDICAID, SELFPAY ==
[2023-02-28 07:02] VITALS: BP 144/75; PULSE 82; RESP 16; TEMP 36.6; O2SAT 94
--- NOTE | 2023-02-28 07:10 | ED.GENADUL_ITS ---
Discharge Plan Disposition Patient Disposition: Home Condition: Good Discharge Details Chief Complaint: Laceration Clinical Impression: Hemorrhage of skin lesion Primary Care Provider: Lydia Nixon ED Provider: Baldo Denney Home Meds and New Rx's Prescriptions: No Action acetaminophen 500 mg tablet 1,000 mg PO BID PRN (Reason: pain) Qty: 180 3RF metoprolol succinate 25 mg tablet extended release 24 hr 12.5 mg PO DAILY Qty: 45 3RF betamethasone valerate 0.1 % ointment 1 applic topical QD-BID PRN (Reason: High Potency (Group 3) topical steroid) Qty: 45 3RF Eliquis 5 mg tablet 5 mg PO BID Qty: 180 3RF multivitamin Tablet 1 tab PO DAILY Qty: 90 3RF diltiazem HCl 120 mg capsule,extended release 24hr 120 mg PO DAILY Qty: 90 3RF Patient Comments: has not taken this medication - states he has not picked it up from pharmacy - [facility] on 05/25/19. Discharge Instructions Additional Instructions: At this time the bleeding has stopped. Please do not scrape the area. If you notice any worsening of your symptoms, or any new symptoms such as vomiting, diarrhea, fever, chills, shortness of breath, chest pain, numbness, weakness, or fainting , please return immediately to the emergency department for reevaluation. Please follow up with your primary care provider as soon as possible for reassessment and reevaluation. As always, it was a pleasure participating in your medical care today. Referrals: Lydia Nixon, MAINTENANCE AND UTILITIES SUPERVISOR [Primary Care Provider] - Medical Decision Making 77-year-old male on Eliquis for atrial fibrillation presents today for bleeding lesion on his nose. Patient has what appears to be seborrheic keratosis like lesion on his nose. He accidentally scraped it and it caused it to bleed this morning. He came today for further assessment. No other complaints. Made worse by touching. Improved by nothing except for pressure. Exam demonstrates a small oozing lesion on the tip of the nose. No active hemorrhage. No laceration. Strong pressure was applied, after which Dermabond was applied which stopped all the bleeding. Patient tolerated this well. Patient will be discharged. I have extensively reviewed the treatment plan and discharge instructions with the patient. I have addressed all patient concerns at this time. The patient was made aware of what symptoms to monitor for that would warrant a return to the emergency department. Discussed the plan with the patient, they demonstrate verbal understanding and agreement with our assessment and plan at this time. The documentation in this chart was dictated using [employer] dictation software. Please excuse any dictation errors. HPI General Date/Time Provider Initiated Documentation: 02/28/23 07:06 . HPI Narrative: 77-year-old male on Eliquis for atrial fibrillation presents today for bleeding lesion on his nose. Patient has what appears to be seborrheic keratosis like lesion on his nose. He accidentally scraped it and it caused it to bleed this morning. He came today for further assessment. No other complaints. Made worse by touching. Improved by nothing except for pressure. Related Data Home Medications Medication Instructions Recorded Confirmed acetaminophen 500 mg tablet 1,000 mg PO BID PRN pain #180 tabs 08/12/20 02/28/23 apixaban 5 mg tablet (Eliquis) 5 mg PO BID nonvalvular atrial 04/20/22 02/28/23 fibrillation #180 tab-caps multivitamin 1 tab PO DAILY #90 tabs 05/02/22 02/28/23 metoprolol succinate 25 mg 12.5 mg PO DAILY #45 tab-caps 07/21/22 02/28/23 tablet,extended release 24 hr diltiazem HCl 120 mg 120 mg PO DAILY AFib #90 tab-caps 09/27/22 02/28/23 capsule,extended release 24 hr betamethasone valerate 0.1 % 1 applic topical QD-BID PRN High 01/12/23 02/28/23 topical ointment Potency (Group 3) topical steroid #45 grams Previous Rx's Medication Instructions Recorded acetaminophen 500 mg tablet 1,000 mg PO BID PRN pain #180 tabs 08/12/20 apixaban 5 mg tablet (Eliquis) 5 mg PO BID nonvalvular atrial 04/20/22 fibrillation #180 tab-caps multivitamin 1 tab PO DAILY #90 tabs 05/02/22 metoprolol succinate 25 mg 12.5 mg PO DAILY #45 tab-caps 07/21/22 tablet,extended release 24 hr diltiazem HCl 120 mg 120 mg PO DAILY AFib #90 tab-caps 09/27/22 capsule,extended release 24 hr betamethasone valerate 0.1 % 1 applic topical QD-BID PRN High 01/12/23 topical ointment Potency (Group 3) topical steroid #45 grams Allergies Allergy/AdvReac Type Severity Reaction Status Date / Time No Known Allergies Allergy Verified 02/28/23 07:07 General Stated Complaint: Laceration VEDA: 4 Review of Systems All systems reviewed & are unremarkable except as noted in HPI and below PFSH All Active Problems Hemorrhage of skin lesion (Acute) Psoriasis (Chronic ~11/2021) [facility] [place] Derm consult 12/2021; skin bx done most c/w psoriasis; PRN topical steroid recommended Pulmonary hypertension (Chronic) Weight loss (Chronic) Loses weight over the summer, typically recovers during the winter when less active Unspecified 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/09/12) Nocturia (Chronic 08/03/15) 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 3.ENT: Patient has evidence of a gentle ooze coming from the anterior aspect of his nose. No hemorrhagic component. No laceration.. Moist MM. Neck: Symmetric, trachea midline, No thyromegaly. 4.CVS: +S1/S2, No murmurs or gallops. Peripheral pulses 2+ and equal in all extremities. Brisk capillary refill in all extremities. 5.RESP: Unlabored respiratory effort. Clear to auscultation bilaterally. No wheezes rales or rhonchi 6.GI: Soft, Nontender/Nondistended, No hepatosplenomegaly. No guarding or rebound. 7.MSK: Normocephalic/Atraumatic, Extremities w/o deformity or ttp No cyanosis or clubbing, Normal movement of all extremities 8.Skin: Warm, Dry. No rashes or lesions. 9.Neuro: household appliance mechanic II-XII grossly intact. Sensation grossly intact, no focal neurolo gic deficits. 10.Psych: (AAO) x3. Appropriate mood and affect Course Vital Signs Vital signs: Vital Signs Temperature 36.6 C 02/28/23 07:02 Pulse 82 02/28/23 07:02 Respiratory Rate 16 02/28/23 07:02 Blood Pressure 144/75 H 02/28/23 07:02 Pulse Oximetry 94 02/28/23 07:02 Temperature 36.6 C 02/28/23 07:02 Temperature Source Temporal Artery Scan 02/28/23 07:02 Pulse 82 02/28/23 07:02 Respiratory Rate 16 02/28/23 07:02 Respiratory Effort Normal 02/28/23 07:05 Blood Pressure 144/75 H 02/28/23 07:02 Blood Pressure Position Sitting 02/28/23 07:02 Pulse Oximetry 94 02/28/23 07:02 Oxygen Delivery Method Room Air 02/28/23 07:02 Oxygen Flow Rate 0 02/28/23 07:02 Pain Level 0 02/28/23 07:05
== END 2023-02-28 07:17 | disposition home or self-care (01) ==
LOC: ER 07:17
PROVIDERS: Emergency Provider Student in an Organized Health Care Education/Training Program; PCP Nurse Practitioner Family
DX: R23.3 Spontaneous ecchymoses (principal); Z79.899 Other long term (current) drug therapy
CPT/HCPCS: 99283

== ENCOUNTER 2024-07-22 12:52 | Emergency (ER) | payer OTHER, SELFPAY ==
[2024-07-22 12:58] VITALS: BP 138/72; PULSE 89; RESP 18; TEMP 36.4; O2SAT 95
[2024-07-22 14:46] VITALS: BP 142/80; PULSE 86; RESP 16; TEMP 36.8; O2SAT 96
--- NOTE | 2024-07-22 14:46 | ED.GENADUL_ITS ---
Discharge Plan Disposition Patient Disposition: Home Condition: Good Discharge Details Clinical Impression: Finger laceration Primary Care Provider: Jt Bryant ED Provider: Simi Duggan Home Meds and New Rx's Prescriptions: Continued diltiazem HCl 120 mg capsule,extended release 24hr 120 mg PO DAILY Qty: 90 3RF Patient Comments: has not taken this medication - states he has not picked it up from pharmacy - [facility] on 05/25/19. Eliquis 5 mg tablet 5 mg PO BID Qty: 180 3RF multivitamin Tablet 1 tab PO DAILY Qty: 90 3RF metoprolol succinate 25 mg tablet extended release 24 hr 12.5 mg PO DAILY Qty: 45 3RF Discharge Instructions Instructions: Laceration Repair With Glue ED Additional Instructions: Wound is closed with adhesive glue. Should help prevent further bleeding. Please monitor wound for signs of infection including redness, warmth, drainage, increased pain, fever/chills. If you develop these or other new/worsening symptoms please to care urgently once again. Otherwise, please allow the adhesive to come off naturally. Try not to pick or pull at this. You may find it beneficial to leave a Band-Aid over it to help prevent this. Please continue with the finger splint to also help prevent flexion of that joint as that may also cause us to, prematurely. Referrals: Jt Bryant DO [Primary Care Provider] - Discharge Data Discharge Date/Time-TO BE ENTERED AT DEPARTURE: 07/22/24 15:01 HPI General Date/Time Provider Initiated Documentation: 07/22/24 13:09 . Limitations to Documentation: no limitations . Information obtained by: patient, family and RN notes reviewed . History of Present Illness 79 year old M presents to the emergency department with the chief complaint of Laceration right index finger, described as mild, Quality is described as aching, and is localized to the right and upper extremity. Patient reports no radiation. Patient started experiencing this hour(s) and it has been constant. No relieving factors improve symptom(s), No exacerbating factors reported . Patient notes no other symptoms.. Patient did receive the following treatments prior to arrival, none Related Data Home Medications ?Medication ?Instructions ?Recorded ?Confirmed apixaban 5 mg tablet (Eliquis) 5 mg PO BID nonvalvular atrial 07/30/23 07/22/24 fibrillation #180 tab-caps multivitamin 1 tab PO DAILY #90 tabs 07/30/23 07/22/24 diltiazem HCl 120 mg 120 mg PO DAILY AFib #90 tab-caps 08/03/23 07/22/24 capsule,extended release 24 hr metoprolol succinate 25 mg 12.5 mg (1/2 x 25 mg) PO DAILY #45 07/18/24 07/22/24 tablet,extended release 24 hr tab-caps Previous Rx's ?Medication ?Instructions ?Recorded apixaban 5 mg tablet (Eliquis) 5 mg PO BID nonvalvular atrial 07/30/23 fibrillation #180 tab-caps multivitamin 1 tab PO DAILY #90 tabs 07/30/23 diltiazem HCl 120 mg 120 mg PO DAILY AFib #90 tab-caps 08/03/23 capsule,extended release 24 hr metoprolol succinate 25 mg 12.5 mg (1/2 x 25 mg) PO DAILY #45 07/18/24 tablet,extended release 24 hr tab-caps Allergies Allergy/AdvReac Type Severity Reaction Status Date / Time No Known Allergies Allergy Verified 07/22/24 13:03 General Stated Complaint: Laceration VEDA: 4 Review of Systems Constitutional Constitutional: Reports as per HPI, Denies chills and Denies fever(s) Musculoskeletal Musculoskeletal: Reports as per HPI Integumentary/Breasts Skin/Breast: Reports as per HPI Neurologic Neurologic: Reports as per HPI, Denies sensory deficit and Denies paresthesias Exam Const General: cooperative, healthy appearing, comfortable, no acute distress and well developed Nutritional Appearance: average body habitus and well nourished Orientation: alert and awake Resp Effort & Inspection: normal respiratory effort, able to speak in complete sentences and no respiratory distress Cardio Rate: regular rate Rhythm: regular rhythm Neuro General: patient alert and patient awake Cognition: normal cognition Speech: speech normal Gait: normal gait Sensory Exam: no sensory deficits noted Extrem Hand/finger images: 2 1. Circular superficial avulsion laceration that does have some continued bleeding, this does seem to be minimal. Patient has intact sensation and movement. He is 2+ distal pulses and intact capillary refill. No evidence to suggest deep structure involvement, bony abnormality or instability. Course Vital Signs Vital signs: Vital Signs Temperature 36.4 C 07/22/24 12:58 Pulse 89 07/22/24 12:58 Respiratory Rate 18 10/22/24 12:58 Blood Pressure 138/72 10/22/24 12:58 Pulse Oximetry 95 07/22/24 12:58 Temperature 36.4 C 07/22/24 12:58 Temperature Source Temporal Artery Scan 07/22/24 12:58 Pulse 89 07/22/24 12:58 Respiratory Rate 18 07/22/24 12:58 Respiratory Effort Normal, Non-Labored 07/22/24 13:04 Blood Pressure 138/72 07/22/24 12:58 Pulse Oximetry 95 07/22/24 12:58 Medical Decision Making Patient is a pleasant 79-year-old [id number] male presenting today, companied by work associate, with chief complaint of laceration to the right index finger that he sustained while at work. He reports that he was using some weston and accidentally cut his hand. He denies any other injury at the time of the incident. Is concerned that he has continued to have some bleeding, patient is anticoagulated associates with this. On exam, patient appears nontoxic. He has a small circular avulsion that appears to be quite superficial with continues to have small amount of active bleeding. No deep structure involvement. It is over the PIP joint on the radial side of the right index finger. Sensation is intact, intact capillary refill. Discussed treatment options with the patient. Wound was copiously irrigated by nursing staff. With the patient's continued bleeding and that he is anticoagulated, discussed closure with adhesive which she is agreeable to. Using standard tilt sterile technique, wound was explored to base in a bloodless field and no foreign body or debris noted. Finger tourniquet was used to ensure hemostasis. Wound was cleansed and a thin layer of adhesive was applied. Once this was able to dry, the tourniquet was able to be removed with good hemostasis obtained. Given the location, will have nursing staff place a small splint to help prevent excess pressure on the adhesive. We discussed care of the adhesive as well as signs symptoms of infection and when to seek care urgently once again. All of his questions and concerns were addressed and patient is in agreement this plan. This documentation was generated using [employer] system, please disregard any oddities of phrase or misspellings. 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
== END 2024-07-22 15:01 | disposition home or self-care (01) ==
PROVIDERS: Emergency Provider Physician Assistant; PCP Family Medicine
DX: S61.210A Laceration without foreign body of right index finger without damage to nail, initial encounter (principal); Z87.891 Personal history of nicotine dependence; W26.8XXA Contact with other sharp object(s), not elsewhere classified, initial encounter; I48.91 Unspecified atrial fibrillation; Z79.01 Long term (current) use of anticoagulants
CPT/HCPCS: 12001; 99283

== ENCOUNTER 2024-08-29 17:30 | Emergency (ER) | payer MEDICARE, MEDICAID, SELFPAY ==
[2024-08-29 17:31] VITALS: BP 152/91; PULSE 88; RESP 18; TEMP 36.9; O2SAT 98
[2024-08-29 17:35] VITALS: BP 152/91; PULSE 88; RESP 18; TEMP 36.9; O2SAT 98
--- NOTE | 2024-08-29 17:45 | DI.CT_ITS ---
Exam(s) CT ABDOMEN PELVIS W EXAM: CT ABDOMEN PELVIS W CLINICAL HISTORY: Central abd pain and bloating. TECHNIQUE: Imaging Protocol: Axial computed tomography images with coronal and sagittal reformatted images were created and reviewed CONTRAST MATERIAL: Intravenous: Omnipaque-350 75cc Oral: None COMPARISON: CT CT ABDOMEN PELVIS W from 03/11/2021 FINDINGS: VISUALIZED LUNG BASES: No nodules nor pleural effusions evident. ABDOMEN: There is no ascites. LIVER: There are no focal hepatic lesions evident. No dilated intrahepatic ducts. GALLBLADDER/BILIARY: No obvious acute gallbladder pathology. CBD is not dilated. PANCREAS: No evidence of pancreatic mass nor dilatation of the pancreatic duct. SPLEEN: Spleen is not enlarged. No obvious intrasplenic lesions. Splenic and portal veins are paten t. ADRENALS: There are no significant adrenal masses. KIDNEYS:Small sub cm benign cyst upper pole left kidney again noted. Does not require further imagin g follow-up.. No solid renal masses. No calculi nor hydronephrosis.. ABDOMINAL AORTA: Abdominal aorta is not enlarged. LYMPH NODES:There is no retroperitoneal nor paraaortic adenopathy. ABDOMINAL WALL: No evidence of significant anterior abdominal wall nor inguinal hernia. GI: There multiple dilated small bowel loops throughout central abdomen, these measuring 3 cm diamete r. The colon is not collapsed. There does not appear to be an obvious transition point.. PELVIS: GI: No evidence of appendicitis.There are sigmoid diverticuli without evidence of obvious acute diver ticulitis. LYMPH NODES: There is no intrapelvic nor inguinal adenopathy. REPRODUCTIVE: Prostate is slightly prominent. Seminal vesicles unremarkable. URINARY BLADDER: No calculi nor obvious masses evident OSSEOUS: No fractures and no significant osseous lesions. Multilevel chronic disc space narrowing. No listhesis. IMPRESSION: The main finding here are multiple air-filled moderately dilated small bowel loops in the abdomen wit hout an obvious transition point and without associated collapse of the large bowel. The stomach is mildly dilated. There is no associated ascites nor free air in the abdominal cavity. Probable ileu s/enteritis pattern. Somewhat less concerning for actual small-bowel obstruction at this time. Report called by myself to ER physician 08/29/2024 at 7:15 p.m. RADIATION DOSE DELIVERED: 496.95mGy.cm Total DLP DATA REPOSITORY: All CT scans at this facility are submitted to the National Radiology Data Registry (NRDR) Dose Index Registry (DIR) with the [employer] ([employer]). RADIATION OPTIMIZATION: All CT scans at this facility use at least one of these dose optimization te chniques: automated exposure control; mA and/or kV adjustment per patient size (includes targeted exa ms where dose is matched to clinical indication); or iterative reconstruction.
[2024-08-29 17:46] VITALS: O2SAT 99
--- NOTE | 2024-08-29 17:55 | ED.GENADUL_ITS ---
Discharge Plan Disposition Patient Disposition: Home Condition: Stable Discharge Details Clinical Impression: Abdominal pain, Atrial fibrillation, Pulmonary hypertension Primary Care Provider: Jt Bryant ED Provider: Ayse Telles Home Meds and New Rx's Prescriptions: New simethicone 80 mg tablet,chewable 80 mg PO 4-6XD PRNQty: 14 0RF No Action Eliquis 5 mg tablet 5 mg PO BID Qty: 180 3RF diltiazem HCl 120 mg capsule,extended release 24hr 120 mg PO DAILY Qty: 90 3RF Patient Comments: has not taken this medication - states he has not picked it up from pharmacy - [facility] on 05/25/19. metoprolol succinate 25 mg tablet extended release 24 hr 12.5 mg PO DAILY Qty: 45 3RF multivitamin Tablet 1 tab PO DAILY Qty: 90 3RF ondansetron 4 mg tablet,disintegrating 4 mg PO TID-QID PRN (Reason: nausea and vomiting) Qty: 30 0RF Discharge Instructions Instructions: Abdominal Pain, Adult ED Additional Instructions: You were seen in the emergency department today for evaluation of abdominal pain likely due to gas. In our department a full physical examination performed, had reassuring laboratory studies and a CT scan that did not show any significant abnormalities which would explain her symptoms. You had improvement in your symptoms with Mylanta, which you can buy [id number] and continue. The active ingredient is simethicone, which could help with your gas pain. I did provide you with a prescription for this medication, though your insurance may not cover [id number] medications and you may find it more cost effective to purchase it [id number]. Please follow-up with your primary care provider in the next few days to discuss this visit and any symptoms that change, worsen, or persist. Thank you for allowing us to be part of your care. HPI General Mode of arrival: ambulatory . Date/Time Provider Initiated Documentation: 08/29/24 17:33 . Limitations to Documentation: no limitations . Information obtained by: patient and old records reviewed . HPI Narrative: HPI: This is a 79-year-old male patient with a past medical history significant for pulmonary hypertension, atrial fibrillation on Eliquis, and hypertension, who is presenting for evaluation of several hours of abdominal discomfort. The patient reports that when he was walking he developed a sensation of bloating and pain in the front of his abdomen. He states he feels that it is like a big gas bubble that I cannot get out. He states that he has not tried any medications in the home environment for management of this pain, states that the pain does not radiate. He did have a bowel movement earlier today that was without diarrhea, no bloody stool. Denies nausea or vomiting. Does not believe he has had a fever or chills recently. He has a history of inguinal hernia surgery Exam: Gen: Awake and alert, in no apparent distress HEENT: Non-icteric sclera Neck: Supple Lungs: No apparent respiratory distress, normal respiratory effort. CV: Appears well perfused, strong distal pulses Abdomen: Non-distended, soft, tender to palpation in the periumbilical region without rigidity, rebound, or guarding MSK: Moves 4 extremities without apparent limitation in ROM Skin: Visualized skin without rashes, cyanosis. Neuro: Normal Gait, no obvious focal deficits or facial asymmetry. Speaks in full, clear sentences. Psych: Appropriate for situation. MDM: This is a 79-year-old male patient presenting for evaluation of abdominal pain. Differential includes but is not limited to gastritis/peptic ulcer disease, pancreatitis, cholecystitis, hepatitis, bowel obstruction, diverticulitis, appendicitis, incarcerated hernia, gastroenteritis, aortic pathology including aneurysm, mesenteric ischemia. Patient is without urinary symptoms to significantly increase my concern for UTI, nephrolithiasis. The pain is not located in the upper abdomen, and he is without chest pain to significantly increase my concern for ACS, arrhythmia. Given the patient's past medical history, he is quite high risk despite the brief duration of his symptoms. We will provide him with a dose of Mylanta whic h contains simethicone as initial pain management. ED Course: I independently interpreted the laboratory studies, which show no significant leukocytosis, anemia, or thrombocytopenia. The chemistry panel is without evidence of electrolyte abnormality, severe kidney dysfunction, or liver injury. Lipase is low, and initial troponin is low. Delta troponin without interval change, no evidence for ischemia and patient remains chest pain-free. I reviewed the CT scan and discussed the results with the radiologist, which does show some dilated loops of bowel but no evidence of obvious small bowel o bstruction or transition points. Otherwise no concerning findings. On reassessment the patient reports that he passed a large volume of gas, and has had resolution of his pain. I did provide him with a prescription for simethicone for ongoing pain due to bowel gas. He is greatly desiring of discharge to home, and at this time, the patient has had a full medical evaluation and is safe for discharge to home. They are hemodynamically stable, ambulatory, and tolerating PO. They are understanding of the follow-up plan and return precautions. They left our facility without incident. Ayse Telles MD Related Data Home Medications ?Medication ?Instructions ?Recorded ?Confirmed apixaban 5 mg tablet (Eliquis) 5 mg PO BID nonvalvular atrial 08/08/24 08/29/24 fibrillation #180 tab-caps diltiazem HCl 120 mg 120 mg PO DAILY AFib #90 tab-caps 08/08/24 08/29/24 capsule,extended release 24 hr metoprolol succinate 25 mg 12.5 mg (1/2 x 25 mg) PO DAILY #45 08/08/24 08/29/24 tablet,extended release 24 hr tab-caps multivitamin 1 tab PO DAILY #90 tabs 08/21/24 08/29/24 ondansetron 4 mg disintegrating 4 mg PO TID-QID PRN nausea and 08/22/24 08/29/24 tablet vomiting #30 tabs simethicone 80 mg chewable tablet 80 mg PO 4-6XD PRN #14 tabs 08/29/24 Previous Rx's ?Medication ?Instructions ?Recorded apixaban 5 mg tablet (Eliquis) 5 mg PO BID nonvalvular atrial 08/08/24 fibrillation #180 tab-caps diltiazem HCl 120 mg 120 mg PO DAILY AFib #90 tab-caps 08/08/24 capsule,extended release 24 hr metoprolol succinate 25 mg 12.5 mg (1/2 x 25 mg) PO DAILY #45 08/08/24 tablet,extended release 24 hr tab-caps multivitamin 1 tab PO DAILY #90 tabs 08/21/24 ondansetron 4 mg disintegrating 4 mg PO TID-QID PRN nausea and 08/22/24 tablet vomiting #30 tabs simethicone 80 mg chewable tablet 80 mg PO 4-6XD PRN #14 tabs 08/29/24 Allergies Allergy/AdvReac Type Severity Reaction Status Date / Time No Known Allergies Allergy Verified 08/29/24 17:34 General Stated Complaint: Abd Prob VEDA: 3 Course Vital Signs Vital signs: Vital Signs Temperature 36.9 C 08/29/24 17:31 Pulse 88 08/29/24 17:31 Respiratory Rate 18 08/29/24 17:31 Blood Pressure 152/91 H 08/29/24 17:31 Pulse Oximetry 98 08/29/24 17:31 Temperature 36.9 C 08/29/24 17:35 Temperature Source Temporal Artery Scan 08/29/24 17:35 Pulse 88 08/29/24 17:35 Respiratory Rate 18 08/29/24 17:35 Respiratory Effort Normal, Non-Labored 08/29/24 17:35 Blood Pressure 152/91 H 08/29/24 17:35 Blood Pressure Position Sitting 08/29/24 17:35 Pulse Oximetry 98 08/29/24 17:35 Oxygen Delivery Method Room Air 08/29/24 17:35 Oxygen Flow Rate 0 08/29/24 17:35 Medical Decision Making Quality:SDOH Health Related Social Needs: No Data to Display PFSH All Active Problems (Updated 08/29/24 @ 19:16 by Ayse Telles MD) Abdominal pain (Acute) Non-healing skin lesion (Acute) Psoriasis (Chronic ~11/2021) [facility] [place] Derm consult 12/2021; skin bx done most c/w psoriasis; PRN topical steroid recommended Pulmonary hypertension (Chronic) Weight loss (Chronic) Loses weight over the summer, typically recovers during the winter when less active Unspecified 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/09/12) Nocturia (Chronic 08/03/15) 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
[2024-08-29 18:00] VITALS: O2SAT 99
[2024-08-29 18:06] LABS: Lactate 1.1 mmol/L (0.6-1.4)
[2024-08-29 18:08] LABS: Abs Immature Grans 0.04 10^3/uL (0.0-0.06); Absolute Basophil Count 0.05 10^3/uL (0.0-0.2); Absolute Eosinophil Count 0.11 10^3/uL (0.0-0.7); Absolute Lymphocyte Count 1.42 10^3/uL (1.2-3.4); Absolute Monocyte Count 0.54 10^3/uL (0.1-0.8); Absolute Neutrophil Count 7.53 10^3/uL (1.2-6.7); Basophils % 0.5 %; Eosinophils % 1.1 %; HCT 43.8 % (40.0-50.0); HGB 14.6 g/dL (13.5-17.5); Immature Grans % 0.4 %; Lymphocytes % 14.7 %; MCH 33.6 pg (27.0-33.0); MCHC 33.3 % (32.0-36.0); MCV 101 fL (80-95); MPV 10.6 fL (8.0-11.0); Monocytes % 5.6 %; Neutrophils % 77.7 %; Platelet Count 147 10^3/uL (130-400); RBC 4.34 10^6/uL (4.36-5.78); RDW 13.2 % (11.8-14.1); RDW-SD 49.3 fL; WBC 9.69 10^3/uL (4.4-10.8)
[2024-08-29 18:20] VITALS: O2SAT 99
[2024-08-29 18:25] LABS: ALT 30 U/L (16-63); AST 19 U/L (15-37); Albumin 3.9 g/dL (3.4-5.0); Alkaline Phosphatase 106 U/L (46-116); Anion Gap 10.6 mmol/L (3-11); BUN 30 mg/dL (7-18); CO2 28.4 mmol/L (21.0-32.0); CREATININE 1.2 mg/dL (0.70-1.30); Calcium 9.1 mg/dL (8.5-10.1); Chloride 107 mmol/L (98-107); Glucose 102 mg/dL (74-106); Lipase 47 U/L (<78); Magnesium 1.9 mg/dL (1.8-2.4); Potassium 4.1 mmol/L (3.5-5.1); Sodium 146 mmol/L (136-145); Total Protein 7.9 g/dL (6.4-8.2); Troponin I 9 ng/L (<or=76)
[2024-08-29] MEDS: Normal Saline - Diluent 50 ML VIAL IJ (18:38)
[2024-08-29] MEDS: Omnipaque 350 MG/ML 100 ML BTL IJ (18:38)
[2024-08-29 19:27] LABS: Troponin I 9 ng/L (<or=76)
[2024-08-29 19:36] VITALS: BP 129/89; PULSE 74; RESP 18; TEMP 36.2; O2SAT 98
== END 2024-08-29 19:38 | disposition home or self-care (01) ==
PROVIDERS: Emergency Provider Emergency Medicine; PCP Family Medicine
DX: R14.0 Abdominal distension (gaseous) (principal); I48.91 Unspecified atrial fibrillation; I27.20 Pulmonary hypertension, unspecified; Z79.01 Long term (current) use of anticoagulants
CPT/HCPCS: 36415; 80053; 83690; 99285; 74177; 83605; 83735; 84484; 85025; J3490

== ENCOUNTER 2024-09-03 11:23 | Outpatient (REF) | payer MEDICARE, MEDICAID, SELFPAY ==
--- NOTE | 2024-09-03 11:55 | SKI_PTH ---
PATIENT: Seth Jones LOC: [facility] U#:[id number] AGE/SX: 79/M ROOM: RE09/03/[address]: Gómez Baugh : 1945 BED: DIS: 09/03/2024 SPEC #: [id number] RECD: 09/03/24 17:00 STATUS: ARTIS REMamta #: [id number] JENNIFER: 09/03/24 11:[address]: Gómez Baugh DEPT: Surgical Specimen RECD BY: Casie Byrne ENTERED: 09/03/24 17:00 SP TYPE: MICHAEL WATERS DR: Jt Bryant DO Tissues: 1 - SKIN BIOPSY(SHAVE/PUNCH) Procedures: SKIN LEVEL 4 Comments: [id number]
== END 2024-09-03 11:24 | disposition home or self-care (01) ==
LOC: LBN 11:23
PROVIDERS: PCP Family Medicine; Visit Provider Student in an Organized Health Care Education/Training Program
DX: C44.519 Basal cell carcinoma of skin of other part of trunk (principal)
CPT/HCPCS: 88305

== ENCOUNTER → 2024-09-03 11:23 | Outpatient (BNVA) | payer MEDICARE, MEDICAID, SELFPAY | PROVIDERS: PCP Family Medicine; Referring Provider Family Medicine; Visit Provider Student in an Organized Health Care Education/Training Program | DX: C44.519 Basal cell carcinoma of skin of other part of trunk (principal) | CPT/HCPCS: 11402; 99215 ==

== ENCOUNTER → 2024-10-29 11:15 | Outpatient (BNVA) | payer MEDICARE, MEDICAID, SELFPAY | PROVIDERS: PCP Family Medicine; Referring Provider Family Medicine; Visit Provider Student in an Organized Health Care Education/Training Program | DX: C44.519 Basal cell carcinoma of skin of other part of trunk (principal) | CPT/HCPCS: 99214 ==